=== PATIENT | female | born 1960 | race Caucasian/White ===

== ENCOUNTER 2017-04-30 04:51 | Emergency (ER) | payer BC ==
[2017-04-30 05:13] LABS: BASOPHILS 0.1 % (0-2); EOSINOPHILS 2.5 % (0-7); HEMATOCRIT 40.9 % (36.0-48.0); HEMOGLOBIN 13.9 g/dL (12-16); IMMATURE GRANULOCYTES 0.2 % (0-5); LYMPHOCYTES 8.9 % (15-50); MCH 30.8 pg (26.0-34.0); MCV 90.7 fL (80.0-100.0); MEAN PLATELET VOLUME 10.5 fL (7.4-10.4); MONOCYTES 6.9 % (2-11); NEUTROPHILS 81.4 % (40-80); PLATELET COUNT 166 10x3/uL (130-400); RBC 4.51 10x6/uL (4.00-5.40); RDW 12.4 % (11.5-14.5); WBC 9.3 10x3/uL (4.8-10.8)
[2017-04-30 05:27] LABS: ALBUMIN 3.9 g/dL (3.4-5.0); ALKALINE PHOSPHATASE 94 U/L (46-116); ALT (SGPT) 33 U/L (10-68); BILIRUBIN - TOTAL 0.45 mg/dL (0.2-1.3); CALC OSMOLALITY 278 mosm/kg (275-300); CALCIUM 9.5 mg/dL (8.5-10.1); CHLORIDE - SERUM 105 mmol/L (98-107); CREATININE - SERUM 0.7 mg/dL (0.6-1.3); GLUCOSE 133 mg/dL (74-106); POTASSIUM - SERUM 3.6 mmol/L (3.5-5.1); PROTEIN - SERUM 7.4 g/dL (6.4-8.2); SODIUM 140 mmol/L (136-145); UREA NITROGEN 8 mg/dL (7-18); eGFR NON AFRICAN AMERICAN > 90 mL/min (90-120)
[2017-04-30 05:30] LABS: APPEARANCE CLEAR (CLEAR); BACTERIA FEW /hpf (NONE SEEN); BILIRUBIN NEGATIVE (NEGATIVE); COLOR YELLOW (YELLOW); EPITHELIAL CELLS 0-5 /hpf (0-5); GLUCOSE NEGATIVE (NEGATIVE); KETONE MODERATE mg/dL (NEGATIVE); NITRITE NEGATIVE (NEGATIVE); PROTEIN TRACE mg/dL (NEGATIVE); RED CELLS - URINE 0-5 /hpf (0-5); SPECIFIC GRAVITY 1.015 (1.005-1.020); UROBILINOGEN NORMAL (NORMAL); WHITE CELLS - URINE 25-50 /hpf (0-5)
[2017-04-30 05:36] LABS: PRO BNP 440 pg/mL (0-125); TROPONIN-I 0.028 ng/mL (0.000-0.060)
== END 2017-04-30 06:45 | disposition home or self-care (01) ==
LOC: D.ER 04:51
PROVIDERS: Family Medicine
DX: N39.0 Urinary tract infection, site not specified (principal); J06.9 Acute upper respiratory infection, unspecified; R55 Syncope and collapse; I10 Essential (primary) hypertension

== ENCOUNTER → 2018-05-16 11:14 | Outpatient (CLI) | payer MEDICAID | END | disposition home or self-care (01) | LOC: D.LABREF 11:14 | DX: M16.12 Unilateral primary osteoarthritis, left hip (principal); Z11.8 Encounter for screening for other infectious and parasitic diseases ==

== ENCOUNTER 2018-06-27 10:00 | Inpatient (IN) | payer MEDICAID ==
[~2018-06-27] VITALS: Ht 149.9 cm; Wt 49.4 kg
[~2018-06-27 10:00] MED LIST: LISINOPRIL/HCTZ; METOPROLOL TART50 MG PO; VENTOLIN HFA18 GM INH
[2018-06-27 11:27] LABS: ANION GAP 13.1 mmol/L (8-16); CALCIUM 9.5 mg/dL (8.5-10.1); CARBON DIOXIDE 28.5 mmol/L (21.0-32.0); POTASSIUM - SERUM 3.6 mmol/L (3.5-5.1)
[2018-06-27 11:31] LABS: APTT 29.5 SECONDS (22.8-39.4); INR 0.97 (0.85-1.17); PROTIME 12.4 SECONDS (11.6-15.0)
[2018-06-27 11:52] LABS: APPEARANCE CLEAR (CLEAR); BILIRUBIN NEGATIVE (NEGATIVE); COLOR YELLOW (YELLOW); GLUCOSE NEGATIVE (NEGATIVE); KETONE NEGATIVE (NEGATIVE); NITRITE NEGATIVE (NEGATIVE); PROTEIN NEGATIVE (NEGATIVE); UROBILINOGEN NORMAL (NORMAL)
[2018-06-27 12:28] LABS: BASOPHILS 0.3 % (0-2); EOSINOPHILS 4.6 % (0-7); HEMATOCRIT 40.9 % (36.0-48.0); HEMOGLOBIN 14.1 g/dL (12-16); IMMATURE GRANULOCYTES 0.2 % (0-5); LYMPHOCYTES 28.6 % (15-50); MCHC 34.5 g/dL (31.0-37.0); MCV 89.9 fL (80.0-100.0); MEAN PLATELET VOLUME 10.2 fL (7.4-10.4); MONOCYTES 6.8 % (2-11); NEUTROPHILS 59.5 % (40-80); PLATELET COUNT 223 10x3/uL (130-400); RBC 4.55 10x6/uL (4.00-5.40); RDW 12.8 % (11.5-14.5); WBC 5.9 10x3/uL (4.8-10.8)
[2018-07-03] MEDS ORDERED: HCTZ25 MG PO (08:43)
[2018-07-03] MEDS ORDERED: NAPROSYN500 MG PO (08:45)
[2018-07-03 08:55] VITALS: BP 126/64; BMI 38.4
--- NOTE | 2018-07-03 14:14 | NUR ---
CONTACTED ANESTHESIA REGARDING BORDERLINE HEART RATE AND BLOOD PRESSURE FOR DISCHARGE. ORDERS RECEIVED FOR EPHEDRINE. SEE MAR. WILL CONTINUE TO MONITOR.
[2018-07-03 14:38] VITALS: BP 110/53
--- NOTE | 2018-07-03 16:14 | OP ---
PATIENT NAME: TITO CLARK MEDICAL RECORD: [id number] :58 LOCATION:D.MS [id number] ADMISSION DATE:07/03/18 SURGEON: JOAO CLEARY DO DATE OF OPERATION: 07/03/2018 PROCEDURE PERFORMED: Left total hip arthroplasty. PREOPERATIVE DIAGNOSIS: Severe left hip osteoarthritis. POSTOPERATIVE DIAGNOSIS: Severe left hip osteoarthritis. INDICATIONS: Ms. Clark is a 57-year-old female who has had left hip pain and problems for quite some time. She has tried all manner of nonoperative treatment to no avail. On x-ray, she did have her femoral head protruding into past the teardrop, appeared to be protruding into the pelvis, but was not on AP and she had very little to no motion. As she had been dealing it for quite a while, it started affecting her activities of daily living and requests a total hip be done. I informed her of the risks and benefits of the procedure including infection, bleeding, damage to nerve and vessels, damage to the lateral femoral cutaneous nerve, the femoral nerve and due to her size, infection and need for further surgery. She is okay with those risks as well as the risk of blood clot and even and she signed the consent. SURGEON: Joao Cleary DO DESCRIPTION OF PROCEDURE: The patient was given a block by anesthesia preoperatively, taken to the operative suite, laid in supine position. She was intubated and then placed over onto the [place] table. She was given 80 mg of gentamicin and a gram of vancomycin preoperatively. The left hip was prepped and draped in sterile fashion. The timeout was performed. Everyone was in agreement with the correct side, site, patient and procedure. Once that was done, the incision began over the tensor fascia haris. Careful dissection was made down to the fascia and any bleeding was coagulated with Aquamantys at the time. The fascia was opened. The fascia was taken anterior to the muscle belly posteriorly. The interval then between the rectus was opened and the rectus was taken medially and the tensor fascia haris laterally. The ascending branch of the lateral femoral circumflex was then tied off and coagulated with the Aquamantys and then cut. Any bleeders were coagulated at that time. Capsule was then exposed and the femoral neck was exposed. The neck was cut. Then, the head was removed with somewhat difficulty due to the small size and being so deep into the acetabulum. Once it was removed, the labrum was removed and reaming began up to a 46, a 46 G7 cup was put in and impacted into place. This fit very well, was solidly fixed. The liner was then put in and then the femur was exposed with somewhat difficulty, but got it exposed. A canal finder and cookie cutter were used and then the broaching began at 4, 4 trial was put in and seemed to be a little varus, it was taken out and then lateralized more with a cookie cutter and went to a 6, the 6 fit very well. Once the 6 fit, it was reduced with a -6 neck and seemed to have good equal lengths to the right side. Once that was completed, the hip was reduced with a 32 ceramic head and -6 neck was placed in a high offset micro stem, Taperloc stem was used. This was reduced and the x-rays were taken and seemed to fit very well and be good lengths compared to the other side. The wound was then thoroughly irrigated. Fifi, vancomycin and tobramycin powder were placed deep into the wound and the tensor fascia haris fascia was closed with #1 Vicryl, first a mavqgp-na-gqurw and then a running-locking stitch. Then the skin was closed, the adipose tissue was OPERATIVE REPORT [id number] TITO CLARK approximated with #1 Vicryl with simple sutures and then the skin was closed with 2-0 Vicryl in an inverted interrupted fashion, 4-0 Monocryl ran on the skin. Then, a Prevena incisional VAC was placed on the incision. The patient was awakened and taken to recovery in stable condition. Blood loss was 200 mL proximally. COMPLICATIONS: None. TRANSINT:[id number] Voice Confirmation ID: [id number] DOCUMENT ID: [id number] JOAO CLEARY DO at 1614 CC: [id number] DICTATION DATE: 07/03/18 1314 ASSEMBLY LINE MACHINE OPERATOR: 07/03/18 1531 ADM IN [facility] [address] [place] [address]
[2018-07-03 18:12] VITALS: BP 132/58
[2018-07-03 20:00] VITALS: BP 94/41
--- NOTE | 2018-07-04 04:09 | NUR ---
EYES CLOSED RESPIRATIONS WITH EASE AND UNLABORED. SR UP X2 CALL LIGHT WITHIN REACH.
[2018-07-04 05:04] LABS: HEMATOCRIT 30.2 % (36.0-48.0); HEMOGLOBIN 10.1 g/dL (12-16); MCH 30.4 pg (26.0-34.0); MCHC 33.4 g/dL (31.0-37.0); MEAN PLATELET VOLUME 9.8 fL (7.4-10.4); RBC 3.32 10x6/uL (4.00-5.40); RDW 13.1 % (11.5-14.5); WBC 6.9 10x3/uL (4.8-10.8)
[2018-07-04 05:18] LABS: ANION GAP 15.3 mmol/L (8-16); CALCIUM 7.5 mg/dL (8.5-10.1); CARBON DIOXIDE 23.7 mmol/L (21.0-32.0); CREATININE - SERUM 1.5 mg/dL (0.6-1.3)
[2018-07-04 05:21] VITALS: BP 98/29
[2018-07-04 08:47] VITALS: BP 89/52
[2018-07-04 12:19] VITALS: BP 119/58
[2018-07-04 12:22] VITALS: Ht 149.9 cm; Wt 49.4 kg
--- NOTE | 2018-07-04 16:03 | NUR ---
PT RESTING IN BED NO SIGNS OF DISTRESS. IV TO RIGHT HAND PATENT NO REDNESS OR TENDERNESS. HAS INCISION TO LEFT HIP. DRESSING INTACT. HAS WOUND VAC PRESENT. COMPLAINS OF PAIN AND NAUSEA. MEDS GIVEN. DENIES ANY NEED AT THIS TIME. CALL LIGHT IN REACH. BED LOW POSITION. FAMILY AT BEDSIDE.
[2018-07-04 16:59] VITALS: BP 97/28
[2018-07-04 20:08] VITALS: BP 102/7
--- NOTE | 2018-07-04 20:20 | NUR ---
PT RESTING IN BED. ALERT AND ORIENTED. NO SIGNS OF DISTRESS. BREATHING EVEN AND UNLABORED. PT STATES NO PROBLEMS AT THIS TIME. IV SITE RT HAND DRESSING CLEAN DRY AND INTACT. NO SIGNS OF INFECTION. SKIN CLEAN DRY AND INTACT. BOWEL SOUNDS ACTIVE. LT HIP DRESSING CLEAN DRY AND INTACT. WOUND VAC PRESENT WITH NO DRAINAGE. PLEXI BOOTS ON. WILL CONTINUE PLAN OF CARE. CALL LIGHT IN REACH.
[2018-07-05 00:31] VITALS: BP 97/40
[2018-07-05 04:34] VITALS: BP 96/34
[2018-07-05 06:09] LABS: HEMOGLOBIN 8.9 g/dL (12-16); MCH 30.7 pg (26.0-34.0); MCHC 34.2 g/dL (31.0-37.0); MCV 89.7 fL (80.0-100.0); RBC 2.9 10x6/uL (4.00-5.40); RDW 12.9 % (11.5-14.5); WBC 6.7 10x3/uL (4.8-10.8)
[2018-07-05 06:12] LABS: ANION GAP 12.8 mmol/L (8-16); CALCIUM 7.8 mg/dL (8.5-10.1); CARBON DIOXIDE 23.7 mmol/L (21.0-32.0); CREATININE - SERUM 1.7 mg/dL (0.6-1.3); POTASSIUM - SERUM 3.5 mmol/L (3.5-5.1)
--- NOTE | 2018-07-05 09:57 | NUR ---
MACHINIST INSTRUCTOR COMPLETE. PT LYING IN BED. NO SIGNS OF DISTRESS NOTED. CL IN REACH.
[2018-07-05 10:55] VITALS: BP 108/40
[2018-07-05 12:09] VITALS: BP 110/52
--- NOTE | 2018-07-05 14:00 | MORECARE ---
CASE MANAGEMENT DISCHARGE SUMMARY PATIENT: TITO MYLES SHARP UNIT: [id number] ADM DATE: 07/03/18 AGE: 57 : 58 SEX: F ROOM/BED: D.2216 AUTHOR: FLORENCE GAINES PHYSICIAN: REFERRING PHYSICIAN: WILBER CLEARY DO DATE OF SERVICE: 07/05/18 Discharge Plan Patient Name: TITO MYLES Facility: [facility]:[place] : 1960 Planned Disposition: Home or Self Care Anticipated Discharge Date: Discharge Date: Expected LOS: Initial Reviewer: [email or web address] Initial Review Date: 07/03/2018 Generated: 07/05/18 3:00 pm DCPIA - Discharge Planning Initial Assessment Updated by [email or web address]: Marietta Mckeon on 07/05/18 1:58 pm * Is the patient Alert and Oriented? Yes * How many steps to enter\exit or inside your home? * PCP ZAINAB * Pharmacy [facility] * Preadmission Environment Home with Family * ADLs Independent * Equipment Bedside Commode Rolling Walker * List name and contact numbers for known caregivers / representatives who currently or will assist patient after discharge: VANDANA SUAREZ [phone] * Verbal permission to speak to the caregivers and representatives has been obtained from the patient. N/A * Community resources currently utilized None * Additional services required to return to the preadmission environment? Yes * Can the patient safely return to the preadmission environment? Yes * Has this patient been hospitalized within the prior 30 days at any hospital? No Patient Name: TITO MYLES Page 53637 at 1400 All edits/amendments must be made on the electronic document DICTATION DATE: 07/05/18 1359 UNDERGROUND CONDUIT INSTALLER: MICHELLE 07/05/18 1359 RPT#: [id number] DC DATE: STATUS: ADM IN [facility] [address] [place] [address] END OF REPORT
--- NOTE | 2018-07-05 14:10 | MORECARE ---
CASE MANAGEMENT DISCHARGE SUMMARY PATIENT: TITO MYLES SHARP UNIT: [id number] ADM DATE: 07/03/18 AGE: 57 : 58 SEX: F ROOM/BED: D.2216 AUTHOR: EDER,FLORENCE PHYSICIAN: REFERRING PHYSICIAN: WILBER CLEARY DO DATE OF SERVICE: 07/05/18 Discharge Plan Patient Name: TITO MYLES Facility: [facility]:[place] : 1960 Planned Disposition: Home or Self Care Anticipated Discharge Date: Discharge Date: Expected LOS: Initial Reviewer: [email or web address] Initial Review Date: 07/03/2018 Generated: 07/05/18 3:09 pm Comments DCP- Discharge Planning Updated by [email or web address]: Marietta Mckeon on 07/05/18 1:[address] Patient Name: TITO MYLES Admission Status: Elective Accout number: [id number] Admission Date: 07-03-2018 : 1960 Admission Diagnosis: Attending: WILBER CLEARY Current LOS: 2 Anticipated DC Date: Planned Disposition: Home or Self Care Primary Insurance: MEDICAID [place] Discharge Planning Comments: CM met with patient to assess discharge planning needs. Patient stated that she is independent with her care at home. Her boyfriend will be the one to drive her home and will be the one to help her at home. She has 4 steps to enter in her home. She would like to go to OP PT in [place]. [facility] in [place] for July 09 at 3:30 pm. Patient has a rollator walker and bsc that was delivered to the hospital. Lenin with PT stated that he felt she was safe with the rollator at home. She feels safe to go home. CM will continue to follow and assist with DC planning Marine Biologist: Marietta Mckeon DCPIA - Discharge Planning Initial Assessment Updated by [email or web address]: Marietta Mckeon on 07/05/18 1:58 pm * Is the patient Alert and Oriented? Yes * How many steps to enter\exit or inside your home? * PCP ZAINAB * Pharmacy [facility] * Preadmission Environment Home with Family * ADLs Independent * Equipment Bedside Commode Rolling Walker * List name and contact numbers for known caregivers / representatives who currently or will assist patient after discharge: VANDANA STEWARTTZ [phone] * Verbal permission to speak to the caregivers and representatives has been obtained from the patient. N/A * Community resources currently utilized None * Additional services required to return to the preadmission environment? Yes * Can the patient safely return to the preadmission environment? Yes * Has this patient been hospitalized within the prior 30 days at any hospital? No Last DP export: 07/05/18 1:00 p Patient Name: TITO MYLES Page 97888 at 1410 All edits/amendments must be made on the electronic document DICTATION DATE: 07/05/181408 NIB INSPECTOR: MICHELLE 07/05/181408 RPT#: [id number] DC DATE: STATUS: ADM IN [facility] [address] [place] [address] END OF REPORT
--- NOTE | 2018-07-05 14:54 | MORECARE ---
CASE MANAGEMENT DISCHARGE SUMMARY PATIENT: TITO MYLES SHARP UNIT: [id number] ADM DATE: 07/03/18 AGE: 57 : 58 SEX: F ROOM/BED: D.2216 AUTHOR: EDER,FLORENCE PHYSICIAN: REFERRING PHYSICIAN: WILBER CLEARY DO DATE OF SERVICE: 07/05/18 Discharge Plan Patient Name: TITO MYLES Facility: [facility]:[place] : 1960 Planned Disposition: Home or Self Care Anticipated Discharge Date: Discharge Date: Expected LOS: Initial Reviewer: [email or web address] Initial Review Date: 07/03/2018 Generated: 07/05/18 3:54 pm Comments DCP- Discharge Planning Updated by [email or web address]: Marietta Mckeon on 07/05/18 1:[address] Patient Name: TITO MYLES Admission Status: Elective Accout number: [id number] Admission Date: 07-03-2018 : 1960 Admission Diagnosis: Attending: WILBER CLEARY Current LOS: 2 Anticipated DC Date: Planned Disposition: Home or Self Care Primary Insurance: MEDICAID [place] Discharge Planning Comments: CM met with patient to assess discharge planning needs. Patient stated that she is independent with her care at home. Her boyfriend will be the one to drive her home and will be the one to help her at home. She has 4 steps to enter in her home. She would like to go to OP PT in [place]. [facility] in [place] for July 09 at 3:30 pm. Patient has a rollator walker and bsc that was delivered to the hospital. Lenin with PT stated that he felt she was safe with the rollator at home. She feels safe to go home. CM will continue to follow and assist with DC planning Director Of Teenage Activities: Marietta Mckeon DCPIA - Discharge Planning Initial Assessment Updated by [email or web address]: Marietta Mckeon on 07/05/18 1:58 pm * Is the patient Alert and Oriented? Yes * How many steps to enter\exit or inside your home? * PCP ZAINAB * Pharmacy [facility] * Preadmission Environment Home with Family * ADLs Independent * Equipment Bedside Commode Rolling Walker * List name and contact numbers for known caregivers / representatives who currently or will assist patient after discharge: VANDANA SUAREZ [phone] * Verbal permission to speak to the caregivers and representatives has been obtained from the patient. N/A * Community resources currently utilized None * Additional services required to return to the preadmission environment? Yes * Can the patient safely return to the preadmission environment? Yes * Has this patient been hospitalized within the prior 30 days at any hospital? No Last DP export: 07/05/18 1:09 p Patient Name: TITO MYLES Page 46761 at 1454 All edits/amendments must be made on the electronic document DICTATION DATE: 07/05/181453 OPTOMETRY ASSISTANT: MICHELLE 07/05/181453 RPT#: [id number] DC DATE: STATUS: ADM IN [facility] [address] [place] [address] END OF REPORT
--- NOTE | 2018-07-05 15:03 | MORECARE ---
CASE MANAGEMENT DISCHARGE SUMMARY PATIENT: TITO MYLES SHARP UNIT: [id number] ADM DATE: 07/03/18 AGE: 57 : 58 SEX: F ROOM/BED: D.2216 AUTHOR: EDER,DOC PHYSICIAN: REFERRING PHYSICIAN: WILBER CLEARY DO DATE OF SERVICE: 07/05/18 Discharge Plan Patient Name: TITO MYLES Facility: [facility]:[place] : 1960 Planned Disposition: Home or Self Care Anticipated Discharge Date: Discharge Date: Expected LOS: Initial Reviewer: [email or web address] Initial Review Date: 07/03/2018 Generated: 07/05/18 4:03 pm Comments DCP- Discharge Planning Updated by [email or web address]: Marietta Mckeon on 07/05/18 1:[address] [facility] in [place] called back and stated that they do not take her insurance. Patient would like to use home health [facility] with [facility] (1st choice and [facility] 2nd choice) I called [facility] spoke with Ivana. Clinicals will be faxed and they will accept DCP- Discharge Planning Updated by [id number]: Marietta Mckeon on 07/05/18 1:[address] Patient Name: TITO MYLES Admission Status: Elective Accout number: [id number] Admission Date: 07-03-2018 : 1960 Admission Diagnosis: Attending: WILBER CLEARY Current LOS: 2 Anticipated DC Date: Planned Disposition: Home or Self Care Primary Insurance: MEDICAID [place] Discharge Planning Comments: CM met with patient to assess discharge planning needs. Patient stated that she is independent with her care at home. Her boyfriend will be the one to drive her home and will be the one to help her at home. She has 4 steps to enter in her home. She would like to go to OP PT in [place]. [facility] in [place] for July 09 at 3:30 pm. Patient has a rollator walker and bsc that was delivered to the hospital. Lenin with PT stated that he felt she was safe with the rollator at home. She feels safe to go home. CM will continue to follow and assist with DC planning Supply Clerk: Marietta Mckeon DCPIA - Discharge Planning Initial Assessment Updated by [email or web address]: Marietta Mckeon on 07/05/18 1:58 pm * Is the patient Alert and Oriented? Yes * How many steps to enter\exit or inside your home? * PCP ZAINAB * [facility]acy [facility] * Preadmission Environment Home with Family * ADLs Independent * Equipment Bedside Commode Rolling Walker * List name and contact numbers for known caregivers / representatives who currently or will assist patient after discharge: VANDANA SUAREZ [phone] * Verbal permission to speak to the caregivers and representatives has been obtained from the patient. N/A * Community resources currently utilized None * Additional services required to return to the preadmission environment? Yes * Can the patient safely return to the preadmission environment? Yes * Has this patient been hospitalized within the prior 30 days at any hospital? No External Providers External Provider: [facility] Next Contact Date: Service Request Date: Service Type: Resolution: Reviewer: Comments: Last DP export: 07/05/18 1:54 p Patient Name: TITO MYLES Page 19415 at 1503 All edits/amendments must be made on the electronic document DICTATION DATE: 07/05/181502 DONOR SERVICES TECHNICIAN: MICHELLE 07/05/18 150 RPT#: [id number] DC DATE: STATUS: ADM IN [facility] [address] [place] [address] END OF REPORT
[2018-07-05 18:44] LABS: APPEARANCE CLEAR (CLEAR); BILIRUBIN NEGATIVE (NEGATIVE); COLOR YELLOW (YELLOW); EPITHELIAL CELLS 0-5 /hpf (0-5); GLUCOSE NEGATIVE (NEGATIVE); KETONE NEGATIVE (NEGATIVE); NITRITE NEGATIVE (NEGATIVE); PROTEIN NEGATIVE (NEGATIVE); RED CELLS - URINE 0-5 /hpf (0-5); UROBILINOGEN NORMAL (NORMAL); WHITE CELLS - URINE NSEEN /hpf (0-5)
--- NOTE | 2018-07-05 19:00 | NUR ---
REPORT RECEIVED AND CARE OF PT ASSUMED. PT LYING IN SEMI KO'S POSITION WATCHING TV. NO IV AT THIS TIME. PROVENA WOUND VAC IN PLACE ON LEFT HIP INCISION. WILL MONITOR FOR NEEDS.
--- NOTE | 2018-07-05 19:50 | NUR ---
PT LYING IN BED. NO SIGNS OF DISTRESS NOTED. CL IN REQACH.
[2018-07-05 20:20] VITALS: BP 118/37
--- NOTE | 2018-07-05 20:55 | NUR ---
HS MEDICATIONS GIVEN. WILL CONTINUE TO MONITOR FOR NEEDS. ASSISTED PT UP TO USE RESTROOM...AMBULATES WELL WITH WALKER.
[2018-07-05 23:37] VITALS: BP 117/50
--- NOTE | 2018-07-05 23:43 | NUR ---
GAVE ULTRAM 50 MG AND VISTARIL PO PER PRN ORDERS FOR C/O PAIN IN KNEE. WILL MONITOR FOR EFFECTIVENESS. CALL LIGHT WITHIN REACH.
[2018-07-06 04:07] LABS: BASOPHILS 0 % (0-2); EOSINOPHILS 2.5 % (0-7); HEMATOCRIT 26.1 % (36.0-48.0); IMMATURE GRANULOCYTES 0.2 % (0-5); LYMPHOCYTES 13.7 % (15-50); MCH 30.7 pg (26.0-34.0); MCHC 34.5 g/dL (31.0-37.0); MCV 89.1 fL (80.0-100.0); MEAN PLATELET VOLUME 10.1 fL (7.4-10.4); MONOCYTES 7.8 % (2-11); NEUTROPHILS 75.8 % (40-80); RBC 2.93 10x6/uL (4.00-5.40); RDW 12.8 % (11.5-14.5); WBC 6.4 10x3/uL (4.8-10.8)
[2018-07-06 04:13] LABS: PLATELET COUNT 165 10x3/uL (130-400)
[2018-07-06 04:35] LABS: ALBUMIN 2.5 g/dL (3.4-5.0); ANION GAP 14.1 mmol/L (8-16); BILIRUBIN - TOTAL 0.46 mg/dL (0.2-1.3); CALCIUM 8.3 mg/dL (8.5-10.1); CARBON DIOXIDE 22.9 mmol/L (21.0-32.0); CREATININE - SERUM 1.7 mg/dL (0.6-1.3); PROTEIN - SERUM 6.1 g/dL (6.4-8.2)
[2018-07-06 05:53] VITALS: BP 131/56
[2018-07-06 07:26] VITALS: BP 118/49
--- NOTE | 2018-07-06 08:00 | NUR ---
ASSESSMENT PER FLOW SHEET. PT IS WITHOUT DISTRESS.CALL LIGHT IN REACH. MONITOR FOR NEEDS.
--- NOTE | 2018-07-06 09:08 | NUR ---
AMBULATING IN HALLS WITH PT.TOLERATING WELL
[2018-07-06 12:03] VITALS: BP 104/45
--- NOTE | 2018-07-06 17:58 | NUR ---
HAS REMAINED WITHOUT DISTRESS.REMAINS WITHOUT CHANGE FROM INTITIAL SHIFT ASSESSMENT.CONT PLAN OF CARE
--- NOTE | 2018-07-06 19:00 | NUR ---
REPORT RECEIVED AND CARE OF PT ASSUMED. PT LYING IN SUPINE POSITION WITH EYES CLOSED. NO IV SITED. PROVENA WOUND VAC IN PLACE ON LEFT HIP. WILL MONITOR FOR NEEDS.
[2018-07-06 20:00] VITALS: BP 83/47
--- NOTE | 2018-07-06 20:40 | NUR ---
PT ASSISTED WITH TAKING SHOWER. ALL LINENS AND BED CHANGED.
--- NOTE | 2018-07-06 20:45 | NUR ---
HS MEDICATIONS GIVEN TO INCLUDE ZOFRAN, ULTRAM, AND VISTARIL FOR NAUSEA AND PAIN. WILL CONTINUE TO MONITOR FOR NEEDS. CALL LIGHT WITHIN REACH.
[2018-07-07 00:26] VITALS: BP 101/43
[2018-07-07 00:41] VITALS: BP 101/43
[2018-07-07 05:25] VITALS: BP 110/40
[2018-07-07 06:37] LABS: ANION GAP 13.9 mmol/L (8-16); CALCIUM 8.7 mg/dL (8.5-10.1); CARBON DIOXIDE 24.1 mmol/L (21.0-32.0); CREATININE - SERUM 1.6 mg/dL (0.6-1.3)
[2018-07-07 08:30] VITALS: BP 119/40
[2018-07-07] MEDS ORDERED: VISTARIL50 MG PO (09:47)
[2018-07-07] MEDS ORDERED: ASPIRIN81 MG PO (09:47)
[2018-07-07] MEDS ORDERED: ULTRAM50 MG PO (09:47)
[2018-07-07] MEDS ORDERED: DOXYCYCLINE HY100 M2 PO (09:50)
--- NOTE | 2018-07-07 13:05 | NUR ---
DISCHARGE INSTRUCTIONS BY SHANNON. PT STATES UNDERSTANDING. MARGO LIEBERMAN FOR DC HOME
--- NOTE | 2018-07-08 13:32 | MORECARE ---
CASE MANAGEMENT DISCHARGE SUMMARY PATIENT: TITO MYLES SHARP UNIT: [id number] ADM DATE: 07/03/18 AGE: 57 : 58 SEX: F ROOM/BED: D.1596 AUTHOR: EDER,DOC PHYSICIAN: REFERRING PHYSICIAN: WILBER CLEARY DO DATE OF SERVICE: 07/08/18 Discharge Plan Patient Name: TITO MYLES Facility: [facility]:[place] : 1960 Planned Disposition: Home or Self Care Anticipated Discharge Date: Discharge Date: 07/07/2018 Expected LOS: Initial Reviewer: [id number] Initial Review Date: 07/03/2018 Generated: 07/08/18 2:32 pm Comments DCP- Discharge Planning Updated by [email or web address]: Dai Buchanan on 07/08/18 12:[address] CONTACT INFORMATION [phone] DCP- Discharge Planning Updated by [email or web address]: Dai Buchanan on 07/08/18 12:[address] LATE ENTRY 07/07/18 PATIENT FOR DISCHARGE TO HOME WITH [facility]. CM VISITED AT THE BEDSIDE.PATIENT HAD COMMODE AT THE BEDSIDE. STATED SHE THOUGHT THEY WERE TO DELIVER THE COMMODE TO HER HOME. SHE DID NOT FEEL THE COMMODE WOULD WORK. DESCRIBED A RAISED TOILET SEAT WITH HAND RAILS. SHE DID NOT KNOW THE PROVIDERS NAME. CM CHECKED THE LABEL. TELEPHONED [facility]. EXPLAINED PATIENT'S CONCERN. HAD THE INFRASTRUCTURE ARCHITECT TO SPEAK DIRECTLY TO THE PATIENT TO ANSWER QUESTIONS AND RESOLVE ISSUE REGARDING DME. 1452 TC TO [facility] TO ADVISE OF PLANNED DISCHARGE. SPOKE WITH [facility] THEN THE INFRASTRUCTURE ARCHITECT. FAXED DISCHARGE INSTRUCTIONS AND MED SHEET . DCP- Discharge Planning Updated by [email or web address]: Marietta Mckeon on 07/05/18 1:[address] [facility] in [place] called back and stated that they do not take her insurance. Patient would like to use home health [facility] with [facility] (1st choice and [facility] 2nd choice) I called [facility] spoke with Ivana. Clinicals will be faxed and they will accept DCP- Discharge Planning Updated by [email or web address]: Marietta Mckeon on 07/05/18 1:[address] Patient Name: TITO MYLES Admission Status: Elective Accout number: [id number] Admission Date: 07-03-2018 : 1960 Admission Diagnosis: Attending: WILBER CLEARY Current LOS: 2 Anticipated DC Date: Planned Disposition: Home or Self Care Primary Insurance: MEDICAID [place] Discharge Planning Comments: CM met with patient to assess discharge planning needs. Patient stated that she is independent with her care at home. Her boyfriend will be the one to drive her home and will be the one to help her at home. She has 4 steps to enter in her home. She would like to go to OP PT in [place]. [facility] in [place] for July 09 at 3:30 pm. Patient has a rollator walker and bsc that was delivered to the hospital. Lenin with PT stated that he felt she was safe with the rollator at home. She feels safe to go home. CM will continue to follow and assist with DC planning Cannoneer: Marietta Mckeon DCPIA - Discharge Planning Initial Assessment Updated by [email or web address]: Marietta Mckeon on 07/05/18 1:58 pm * Is the patient Alert and Oriented? Yes * How many steps to enter\exit or inside your home? * PCP ZAINAB * Pharmacy [facility] * Preadmission Environment Home with Family * ADLs Independent * Equipment Bedside Commode Rolling Walker * List name and contact numbers for known caregivers / representatives who currently or will assist patient after discharge: VANDANA SUAREZ [phone] * Verbal permission to speak to the caregivers and representatives has been obtained from the patient. N/A * Community resources currently utilized None * Additional services required to return to the preadmission environment? Yes * Can the patient safely return to the preadmission environment? Yes * Has this patient been hospitalized within the prior 30 days at any hospital? No Last DP export: 07/05/18 2:03 p Patient Name: TITO MYLES Page 30628 at 1332 All edits/amendments must be made on the electronic document DICTATION DATE: 07/08/18 1331 BALANCE WHEEL HAND FILER: DM 07/08/18 1331 RPT#: [id number] DC DATE:07/07/18 STATUS: DIS IN [facility] [address] [place] [address] END OF REPORT
--- NOTE | 2018-07-13 11:46 | MORECARE ---
CASE MANAGEMENT DISCHARGE SUMMARY PATIENT: TITO MYLES SHARP UNIT: [id number] ADM DATE: 07/03/18 AGE: 58 : 58 SEX: F ROOM/BED: D.6386 AUTHOR: EDER,DOC PHYSICIAN: REFERRING PHYSICIAN: WILBER CLEARY DO DATE OF SERVICE: 07/13/18 Discharge Plan Patient Name: TITO MYLES Facility: [facility]:[place] : 1960 Planned Disposition: Home or Self Care Anticipated Discharge Date: Discharge Date: 07/07/2018 Expected LOS: 0 Initial Reviewer: [id number] Initial Review Date: 07/03/2018 Generated: 07/13/18 12:46 pm Comments DCP- Discharge Planning Updated by [email or web address]: Dai Buchanan on 07/08/18 12:[address] CONTACT INFORMATION [phone] DCP- Discharge Planning Updated by [id number]: Dai Buchanan on 07/08/18 12:[address] LATE ENTRY 07/07/18 PATIENT FOR DISCHARGE TO HOME WITH [facility]. CM VISITED AT THE BEDSIDE.PATIENT HAD COMMODE AT THE BEDSIDE. STATED SHE THOUGHT THEY WERE TO DELIVER THE COMMODE TO HER HOME. SHE DID NOT FEEL THE COMMODE WOULD WORK. DESCRIBED A RAISED TOILET SEAT WITH HAND RAILS. SHE DID NOT KNOW THE PROVIDERS NAME. CM CHECKED THE LABEL. TELEPHONED [facility]. EXPLAINED PATIENT'S CONCERN. HAD THE HORTICULTURE/FLORICULTURE TEACHER TO SPEAK DIRECTLY TO THE PATIENT TO ANSWER QUESTIONS AND RESOLVE ISSUE REGARDING DME. 1452 TC TO [facility] TO ADVISE OF PLANNED DISCHARGE. SPOKE WITH [facility] THEN THE HORTICULTURE/FLORICULTURE TEACHER. FAXED DISCHARGE INSTRUCTIONS AND MED SHEET . DCP- Discharge Planning Updated by [id number]: Marietta Mckeon on 07/05/18 1:[address] [facility] in [place] called back and stated that they do not take her insurance. Patient would like to use home health [facility] with [facility] (1st choice and [facility] 2nd choice) I called [employer] [facility] spoke with Ivana. Clinicals will be faxed and they will accept DCP- Discharge Planning Updated by [email or web address]: Marietta Mckeon on 07/05/18 1:[address] Patient Name: TITO MYLES Admission Status: Elective Accout number: [id number] Admission Date: 07-03-2018 : 1960 Admission Diagnosis: Attending: WILBER CLEARY Current LOS: 2 Anticipated DC Date: Planned Disposition: Home or Self Care Primary Insurance: MEDICAID [place] Discharge Planning Comments: CM met with patient to assess discharge planning needs. Patient stated that she is independent with her care at home. Her boyfriend will be the one to drive her home and will be the one to help her at home. She has 4 steps to enter in her home. She would like to go to OP PT in [place]. [facility] in [place] for July 09 at 3:30 pm. Patient has a rollator walker and bsc that was delivered to the hospital. Lenin with PT stated that he felt she was safe with the rollator at home. She feels safe to go home. CM will continue to follow and assist with DC planning Sql Database Programmer: Marietta Mckeon DCPIA - Discharge Planning Initial Assessment Updated by [email or web address]: Marietta Mckeon on 07/05/18 1:58 pm * Is the patient Alert and Oriented? Yes * How many steps to enter\exit or inside your home? * PCP ZAINAB * [facility] * Preadmission Environment Home with Family * ADLs Independent * Equipment Bedside Commode Rolling Walker * List name and contact numbers for known caregivers / representatives who currently or will assist patient after discharge: VANDANA SUAREZ [phone] * Verbal permission to speak to the caregivers and representatives has been obtained from the patient. N/A * Community resources currently utilized None * Additional services required to return to the preadmission environment? Yes * Can the patient safely return to the preadmission environment? Yes * Has this patient been hospitalized within the prior 30 days at any hospital? No Last DP export: 07/08/18 12:32 p Patient Name: TITO MYLES Page [id number] at 1146 All edits/amendments must be made on the electronic document DICTATION DATE: 07/13/18 3074 PHYSICAL EDUCATION TEACHER: MICHELLE 07/13/18 1145 RPT#: [id number] DC DATE:07/07/18 STATUS: DIS IN [facility] [address] [place] [address] END OF REPORT
== END 2018-07-07 13:06 | disposition home health service (06) | DRG 470 ==
LOC: D.SDCHOLD 07-03 07:30 → D.MS 07-03 07:30 → D.SDCHOLD 07-03 09:30 → D.MS 07-03 14:22
PROVIDERS: Internal Medicine Nephrology; ADMIT Orthopaedic Surgery
PROC: 0SRB03Z Replacement of Left Hip Joint with Ceramic Synthetic Substitute, Open Approach (ICD-10-PCS; principal; 2018-07-03 09:30)
DX: M16.12 Unilateral primary osteoarthritis, left hip (principal); D62 Acute posthemorrhagic anemia; N17.9 Acute kidney failure, unspecified; E66.9 Obesity, unspecified; Z68.38 Body mass index [BMI] 38.0-38.9, adult; I10 Essential (primary) hypertension; I25.10 Atherosclerotic heart disease of native coronary artery without angina pectoris; F41.9 Anxiety disorder, unspecified; K21.9 Gastro-esophageal reflux disease without esophagitis; K58.9 Irritable bowel syndrome, unspecified

== ENCOUNTER → 2018-07-12 17:01 | Outpatient (CLI) | payer MEDICAID ==
[2018-07-04 12:22] VITALS: BMI 22.0
[~2018-07-12 17:01] MED LIST changes: +ASPIRIN81 MG PO; +DOXYCYCLINE HY100 M2 PO; +HCTZ25 MG PO; +NAPROSYN500 MG PO; +ULTRAM50 MG PO; +VISTARIL50 MG PO
[2018-07-12 17:29] LABS: BASOPHILS 0.3 % (0-2); EOSINOPHILS 4.6 % (0-7); HEMOGLOBIN 8.6 g/dL (12-16); IMMATURE GRANULOCYTES 0.4 % (0-5); MCHC 31.9 g/dL (31.0-37.0); MCV 94.1 fL (80.0-100.0); MEAN PLATELET VOLUME 8.8 fL (7.4-10.4); MONOCYTES 7.4 % (2-11); NEUTROPHILS 69.3 % (40-80); RBC 2.87 10x6/uL (4.00-5.40); RDW 13.2 % (11.5-14.5); WBC 6.8 10x3/uL (4.8-10.8)
[2018-07-12 17:35] LABS: PLATELET COUNT 345 10x3/uL (130-400)
[2018-07-12 17:36] LABS: APPEARANCE CLEAR (CLEAR); COLOR YELLOW (YELLOW); SPECIFIC GRAVITY 1.005 (1.005-1.020)
[2018-07-12 17:37] LABS: BILIRUBIN NEGATIVE (NEGATIVE); GLUCOSE NEGATIVE (NEGATIVE); KETONE NEGATIVE (NEGATIVE); NITRITE NEGATIVE (NEGATIVE); PROTEIN NEGATIVE (NEGATIVE); UROBILINOGEN NORMAL (NORMAL)
[2018-07-12 17:44] LABS: ALBUMIN 2.8 g/dL (3.4-5.0); ANION GAP 14.5 mmol/L (8-16); BILIRUBIN - TOTAL 0.2 mg/dL (0.2-1.3); CALCIUM 8.5 mg/dL (8.5-10.1); CARBON DIOXIDE 29.5 mmol/L (21.0-32.0); CREATININE - SERUM 1.5 mg/dL (0.6-1.3); PROTEIN - SERUM 6.2 g/dL (6.4-8.2)
== END | disposition home or self-care (01) ==
LOC: D.LABREF 17:01
PROVIDERS: Family Medicine
DX: I10 Essential (primary) hypertension (principal); I25.10 Atherosclerotic heart disease of native coronary artery without angina pectoris

== ENCOUNTER → 2018-08-10 08:02 | Outpatient (CLI) | payer MEDICAID ==
[2018-07-04 12:22] VITALS: BMI 22.0
== END | disposition home or self-care (01) ==
LOC: D.MRI 08:02
DX: M25.562 Pain in left knee (principal)

== ENCOUNTER 2019-01-17 09:37 | Inpatient (IN) | payer MEDICAID ==
[~2019-01-17] VITALS: Ht 151.1 cm; Wt 90.7 kg
[2019-01-21] MEDS ORDERED: ASPIRIN EC81 M1 PO (09:44)
[2019-01-21] MEDS ORDERED: LISINOPRIL20 MG PO (09:45)
[2019-01-21] MEDS ORDERED: OXYBUTYNIN CHLOR5 M1 PO (09:48)
[2019-01-21 10:55] LABS: ANION GAP 11.5 mmol/L (8-16); CALCIUM 9.1 mg/dL (8.5-10.1); CARBON DIOXIDE 27.8 mmol/L (21.0-32.0); CREATININE - SERUM 0.9 mg/dL (0.6-1.3); POTASSIUM - SERUM 4.3 mmol/L (3.5-5.1)
[2019-01-21 10:56] LABS: BASOPHILS 0.2 % (0-2); EOSINOPHILS 5.6 % (0-7); HEMATOCRIT 36.7 % (36.0-48.0); HEMOGLOBIN 12.3 g/dL (12-16); IMMATURE GRANULOCYTES 0.2 % (0-5); LYMPHOCYTES 28.2 % (15-50); MCH 30.4 pg (26.0-34.0); MCHC 33.5 g/dL (31.0-37.0); MCV 90.8 fL (80.0-100.0); MEAN PLATELET VOLUME 9.9 fL (7.4-10.4); NEUTROPHILS 60.8 % (40-80); PLATELET COUNT 188 10x3/uL (130-400); RBC 4.04 10x6/uL (4.00-5.40)
[2019-01-21 10:58] LABS: INR 1.04 (0.85-1.17); PROTIME 13.1 SECONDS (11.6-15.0)
[2019-01-21 12:08] LABS: APPEARANCE CLEAR (CLEAR); BILIRUBIN NEGATIVE (NEGATIVE); COLOR YELLOW (YELLOW); GLUCOSE NEGATIVE (NEGATIVE); KETONE NEGATIVE (NEGATIVE); NITRITE NEGATIVE (NEGATIVE); PROTEIN NEGATIVE (NEGATIVE); SPECIFIC GRAVITY 1.005 (1.005-1.020); UROBILINOGEN NORMAL (NORMAL)
[2019-01-22] MEDS ORDERED: ZETIA10 MG PO (07:45)
[2019-01-22] MEDS ORDERED: NITROQUICK0.4 MG SL (07:48)
--- NOTE | 2019-01-22 07:50 | NUR ---
3456 PT REPORTS HAVING CHEST PAIN LAST EVENING AND TOOK ONE NTG SL WITHOUT RELIEF. SHE SAID AFTER SHE STARTED PASSING FLATUS, THE PAIN IN HER CHEST SUBSIDED. PT REPORTS SHE HAS HAD A CARDIAC WORKUP 4 YEARS AGO. NO STENTS,NO RI. HX OF PALPITATIONS. STATES SHE HAD SOME PALPITATIONS LAST NIGHT AND THAT WAS ANOTHER REASON FOR HER TO TAKE NTG. DENIES CP AT PRESENT. NO PALPITATIONS CURRENTLY.
--- NOTE | 2019-01-22 08:06 | NUR ---
0756 DR. MIKE NOTIFIED OF PT'S REPORTING OF RECENT CHEST PAIN AND PALPITATIONS. UPON FURTHER QUESTIONING, SHE REPORTS HAVING HEAVINESS IN CHEST ON EXERTION AND FATIGUE. DR MIKE STATES HE WILL COME SEE PT.
[2019-01-22 08:25] VITALS: BP 137/58; BMI 37.8
--- NOTE | 2019-01-22 08:34 | NUR ---
0812 DR. MIKE HERE TO EVALUATE PT 0817 DR. MIKE SAID TO PROCEED WITH GETTING PT READY FOR SURGERY.
--- NOTE | 2019-01-22 10:07 | NUR ---
PLASMA BLADE USED LOT# [id number] DATE: 07/12/20
[2019-01-22 12:55] VITALS: BP 137/61
--- NOTE | 2019-01-22 13:10 | NUR ---
JUST ARRIVED TO ROOM 2200. AWAKE AND ALERT EASILY TO AROUSED WHEN NAME IS CALLED. RESP EVEN AND UNLABORED WITH NO DISTRESS NOTED. CAN EXPRESS NEEDS AND WANTS. DRESSING CLEAN DRY AND INTACT TO RIGHT HIP WITH ICE PACK INTACT. AND C/L IN REACH AT BEDSIDE.
[2019-01-22 13:53] LABS: ANION GAP 14.7 mmol/L (8-16); CALCIUM 8.2 mg/dL (8.5-10.1); POTASSIUM - SERUM 4.4 mmol/L (3.5-5.1)
[2019-01-22 13:54] LABS: CARBON DIOXIDE 20.7 mmol/L (21.0-32.0)
[2019-01-22 13:56] LABS: APTT 28.5 SECONDS (22.8-39.4); INR 1.09 (0.85-1.17); PROTIME 13.6 SECONDS (11.6-15.0)
[2019-01-22 13:57] LABS: BASOPHILS 0.1 % (0-2); EOSINOPHILS 1.2 % (0-7); HEMATOCRIT 33.3 % (36.0-48.0); HEMOGLOBIN 11.1 g/dL (12-16); IMMATURE GRANULOCYTES 0.4 % (0-5); LYMPHOCYTES 9.6 % (15-50); MCH 30.6 pg (26.0-34.0); MCHC 33.3 g/dL (31.0-37.0); MCV 91.7 fL (80.0-100.0); MEAN PLATELET VOLUME 9.9 fL (7.4-10.4); MONOCYTES 1.6 % (2-11); NEUTROPHILS 87.1 % (40-80); PLATELET COUNT 183 10x3/uL (130-400); RBC 3.63 10x6/uL (4.00-5.40)
[2019-01-22 14:02] LABS: WBC 11.9 10x3/uL (4.8-10.8)
[2019-01-22 14:28] VITALS: BP 137/61; BMI 39.8
[2019-01-22 15:45] VITALS: BP 94/38
[2019-01-22 20:00] VITALS: BP 96/31
[2019-01-22 21:17] VITALS: BP 96/31
[2019-01-23] VITALS (7 sets, daily range): BP systolic 81–142; BP diastolic 30–87; Ht 151.1 cm; Wt 90.7 kg
--- NOTE | 2019-01-23 01:58 | NUR ---
PT RESTING IN BED WITH NO NEEDS AT THIS TIME IV IN PLACE AND PATEN TO LEFT HAND WITH 1/2 NS AT 50 PER ORDERS KNEE IMMOBLIZER IN PLACE. DRESSING TO RIGHT HIP IN PLACE CDI. LOPRESSER HELD THIS SHIFT FOR B/P OF . WATER IN REACH REMAINS ON BEDREST AT THIS TIME.
[2019-01-23 07:12] LABS: HEMATOCRIT 27.1 % (36.0-48.0); HEMOGLOBIN 9.1 g/dL (12-16); MCH 30.6 pg (26.0-34.0); MCHC 33.6 g/dL (31.0-37.0); MCV 91.2 fL (80.0-100.0); MEAN PLATELET VOLUME 10.1 fL (7.4-10.4); RBC 2.97 10x6/uL (4.00-5.40); RDW 13.1 % (11.5-14.5)
[2019-01-23 07:15] LABS: WBC 8.7 10x3/uL (4.8-10.8)
--- NOTE | 2019-01-23 07:30 | NUR ---
PT RESTING IN BED WATCHING TV. NO ACUTE DISTRESS NOTED AT THIS TIME. O2 @ 2L NC IN PLACE. REPORTS PAIN / AT THIS TIME. IV TO LEFT HAND WITH 1/2 NS @ 50ML/HR INFUSING VIA PUMP. SITE WITHOUT REDNESS OR EDEMA. DRESSING C/D/I TO RIGHT THIGH. LEG IMMOBILIZER IN PLACE. PULSE PALPABLE, EXTREMITY WARM TO TOUCH, ABLE TO MOVE TOES. PT DENIES FURTHER NEEDS AT THIS TIME. CL WITHIN REACH. ENCOURAGED TO CALL WITH NEEDS. CONTINUE POC
[2019-01-23 09:56] LABS: ALBUMIN 2.8 g/dL (3.4-5.0); BILIRUBIN - TOTAL 0.29 mg/dL (0.2-1.3); CALCIUM 7.7 mg/dL (8.5-10.1); CARBON DIOXIDE 21.5 mmol/L (21.0-32.0); CREATININE - SERUM 1.1 mg/dL (0.6-1.3); POTASSIUM - SERUM 4.5 mmol/L (3.5-5.1); PROTEIN - SERUM 5.3 g/dL (6.4-8.2)
--- NOTE | 2019-01-23 11:15 | NUR ---
BLADDER SCAN PERFORMED, 0ML URINE SCANNED AT THIS TIME. PT ASSISTED TO BEDSIDE COMMODE VOIDED 250ML YELLOW URINE. OBTAINED SPECIMEN PER ORDERS FOR UA
[2019-01-24 04:07] LABS: BASOPHILS 0.1 % (0-2); EOSINOPHILS 2.9 % (0-7); HEMATOCRIT 24.7 % (36.0-48.0); HEMOGLOBIN 8.3 g/dL (12-16); IMMATURE GRANULOCYTES 0.3 % (0-5); LYMPHOCYTES 16.2 % (15-50); MCH 30.5 pg (26.0-34.0); MCHC 33.6 g/dL (31.0-37.0); MCV 90.8 fL (80.0-100.0); MEAN PLATELET VOLUME 9.7 fL (7.4-10.4); MONOCYTES 6.9 % (2-11); NEUTROPHILS 73.6 % (40-80); PLATELET COUNT 160 10x3/uL (130-400); RBC 2.72 10x6/uL (4.00-5.40); RDW 13.2 % (11.5-14.5); WBC 7.3 10x3/uL (4.8-10.8)
[2019-01-24 04:16] LABS: ALBUMIN 2.7 g/dL (3.4-5.0); ANION GAP 12.3 mmol/L (8-16); BILIRUBIN - TOTAL 0.27 mg/dL (0.2-1.3); CALCIUM 7.8 mg/dL (8.5-10.1); CARBON DIOXIDE 24.7 mmol/L (21.0-32.0); CREATININE - SERUM 1.2 mg/dL (0.6-1.3); PROTEIN - SERUM 5.2 g/dL (6.4-8.2)
--- NOTE | 2019-01-24 04:50 | NUR ---
I have reviewed this patient and I concur with the Shift Assessment completed by the Licensed Practical Nurse today this shift.
[2019-01-24 09:37] VITALS: BP 136/38
[2019-01-24 13:07] VITALS: BP 139/50
[2019-01-24 18:14] VITALS: BP 137/50
--- NOTE | 2019-01-24 20:00 | NUR ---
ALERT SITTING UP IN BED, HAS BEEN UP AMBULATING IN HALLWAY, ABD TENDER WITH STERI STRIPS IN PLACE X 5 SITES, NO DRAINAGE NOTED, SEE SHIFT ASSESSMENT, CALL LIGHT IN REACH
--- NOTE | 2019-01-24 20:00 | NUR ---
ALERT RESTING IN BED, SWELLING AND BRUSING NOTED TO RIGHT HIP, DRESSING D/I, SEE SHIFT ASSESSMENT, CALL LIGHT IN REACH
[2019-01-24 20:43] VITALS: BP 141/56
[2019-01-25 00:47] VITALS: BP 128/41
[2019-01-25 05:35] VITALS: BP 136/49
[2019-01-25 06:45] LABS: BASOPHILS 0.2 % (0-2); EOSINOPHILS 5.6 % (0-7); HEMATOCRIT 25.1 % (36.0-48.0); HEMOGLOBIN 8.4 g/dL (12-16); IMMATURE GRANULOCYTES 0.3 % (0-5); LYMPHOCYTES 20.1 % (15-50); MCH 30.7 pg (26.0-34.0); MCHC 33.5 g/dL (31.0-37.0); MCV 91.6 fL (80.0-100.0); MONOCYTES 7.5 % (2-11); NEUTROPHILS 66.3 % (40-80); PLATELET COUNT 168 10x3/uL (130-400); RBC 2.74 10x6/uL (4.00-5.40); RDW 13.3 % (11.5-14.5); WBC 6.4 10x3/uL (4.8-10.8)
[2019-01-25 07:06] LABS: ALBUMIN 2.7 g/dL (3.4-5.0); ANION GAP 13.9 mmol/L (8-16); BILIRUBIN - TOTAL 0.58 mg/dL (0.2-1.3); CALCIUM 8.6 mg/dL (8.5-10.1); CARBON DIOXIDE 24.1 mmol/L (21.0-32.0); CREATININE - SERUM 1.1 mg/dL (0.6-1.3); PROTEIN - SERUM 5.7 g/dL (6.4-8.2)
--- NOTE | 2019-01-25 07:39 | NUR ---
AWAKE AND ALERT. ORIENTED X3. NO C/O AT THIS TIME. LUNGS ARE CLEAR BILATERALLY, NO COUGH NOTED. SKIN IS INTACT WTIHOUT REDNESS EXCEPT INCISION TO RIGHT HIP WHICH HAS A DRY INTACT DRESSING IN PLACE. SL TO LEFT HAND IS PATENT WITHOUT REDNESS AT INSERTION SITE. DENIES NEEDS.
--- NOTE | 2019-01-25 07:47 | MORECARE ---
CASE MANAGEMENT DISCHARGE SUMMARY PATIENT: TITO MYLES SHARP UNIT: [id number] ADM DATE: 01/22/19 AGE: 58 : 58 SEX: F ROOM/BED: D.2201 AUTHOR: FLORENCE GAINES PHYSICIAN: REFERRING PHYSICIAN: WILBER CLEARY DO DATE OF SERVICE: 01/25/19 Discharge Plan Patient Name: TITO MYLES Facility: [facility]:[place] : 1960 Planned Disposition: Home Health Service Anticipated Discharge Date: Discharge Date: Expected LOS: Initial Reviewer: [email or web address] Initial Review Date: 01/22/2019 Generated: 01/25/19 8:47 am Comments DCP- Discharge Planning Updated by [email or web address]: Marietta Mckeon on 01/25/19 6:[address] PATIENT PHYSICAL ADDRESS IS [address] [place] [address] DCP- Discharge Planning Updated by [email or web address]: Marietat Mckeon on 01/25/19 6:[address] Patient Name: TITO MYLES Admission Status: Elective Accout number: [id number] Admission Date: 01-22-2019 : 1960 Admission Diagnosis:UNILATERAL PRIMARY OSTEOARTHRITIS, RIGHT KNEE Attending: WILBER CLEARY Current LOS: 3 Anticipated DC Date: Planned Disposition: Home Health Service Primary Insurance: MEDICAID [place] Discharge Planning Comments: CM met with patient to complete initial dc planning assessment. CM educated patient on the CM role and verbal consent given by patient to complete assessment. Patient lives at home with a roommate where she is independent with her care. At discharge patient plans to return home and feels this is a safe discharge. Her Roommate will be her driver wheelchair home. CM discussed availability of home health, rehab services, and medical equipment. She would like home health at [facility] with [facility]. She has a walker at home. I will send referral to [facility] . Patient denied known discharge needs at this time. CM will continue to follow and will assist as needed with dc plans/needs. Brake Cou[address] Freight: Marietta Mckeon DCPIA - Discharge Planning Initial Assessment Updated by [email or web address]: Marietta Mckeon on 01/25/19 7:43 am * Is the patient Alert and Oriented? Yes * How many steps to enter\exit or inside your home? * PCP ZAINAB * [facility] * Preadmission Environment Home with Family * ADLs Independent * Equipment Cane Walker * List name and contact numbers for known caregivers / representatives who currently or will assist patient after discharge: VANDANA SUAREZ [phone] * Verbal permission to speak to the caregivers and representatives has been obtained from the patient. N/A * Community resources currently utilized None * Additional services required to return to the preadmission environment? Yes * Can the patient safely return to the preadmission environment? Yes * Has this patient been hospitalized within the prior 30 days at any hospital? No Coverage Notice Reviewer: [id number] Jordan Mckeon Notice Issued Date-Time: 01/25/2019 7:30 Notice Type: Patient Choice Letter Notice Delivered To: Patient Relationship to Patient: Superintendent Operating Name: Delivery Method: HAND - Hand Delivered Kerry Days: Prior Verbal Notification: Recipient Understood Notice: Yes Recipient Signature: Yes Med Rec Note Co-signed by Attending: Coverage Notice Comment: [facility] Patient Name: TITO MYLES Page 12546 at 0747 All edits/amendments must be made on the electronic document DICTATION DATE: 01/25/19746 EKG MONITOR: MICHELLE 01/25/19746 RPT#: [id number] DC DATE: STATUS: ADM IN [facility] [address] [place] [address] END OF REPORT
--- NOTE | 2019-01-25 08:00 | MORECARE ---
CASE MANAGEMENT DISCHARGE SUMMARY PATIENT: TITO MYLES SHARP UNIT: [id number] ADM DATE: 01/22/19 AGE: 58 : 58 SEX: F ROOM/BED: D.2201 AUTHOR: FLORENCE GAINES PHYSICIAN: REFERRING PHYSICIAN: WILBER CLEARY DO DATE OF SERVICE: 01/25/19 Discharge Plan Patient Name: TITO MYLES Facility: [facility]:[place] : 1960 Planned Disposition: Home Health Service Anticipated Discharge Date: Discharge Date: Expected LOS: Initial Reviewer: [email or web address] Initial Review Date: 01/22/2019 Generated: 01/25/19 9:00 am Comments DCP- Discharge Planning Updated by [email or web address]: Marietta Mckeon on 01/25/19 6:[address] PATIENT PHYSICAL ADDRESS IS [address] [place] [address] DCP- Discharge Planning Updated by [email or web address]: Marietta Mckeon on 01/25/19 6:[address] Patient Name: TITO MYLES Admission Status: Elective Accout number: [id number] Admission Date: 01-22-2019 : 1960 Admission Diagnosis:UNILATERAL PRIMARY OSTEOARTHRITIS, RIGHT KNEE Attending: WILBER CLEARY Current LOS: 3 Anticipated DC Date: Planned Disposition: Home Health Service Primary Insurance: MEDICAID [place] Discharge Planning Comments: CM met with patient to complete initial dc planning assessment. CM educated patient on the CM role and verbal consent given by patient to complete assessment. Patient lives at home with a roommate where she is independent with her care. At discharge patient plans to return home and feels this is a safe discharge. Her Roommate will be her courier delivery driver home. CM discussed availability of home health, rehab services, and medical equipment. She would like home health at [facility] with [facility]. She has a walker at home. I will send referral to [facility] . Patient denied known discharge needs at this time. CM will continue to follow and will assist as needed with dc plans/needs. Waterproofing Mixer: Marietta Mckeon DCPIA - Discharge Planning Initial Assessment Updated by [email or web address]: Marietta Mckeon on 01/25/19 7:43 am * Is the patient Alert and Oriented? Yes * How many steps to enter\exit or inside your home? * PCP ZAINAB * [facility] * Preadmission Environment Home with Family * ADLs Independent * Equipment Cane Walker * List name and contact numbers for known caregivers / representatives who currently or will assist patient after discharge: VANDANA SUAREZ [phone] * Verbal permission to speak to the caregivers and representatives has been obtained from the patient. N/A * Community resources currently utilized None * Additional services required to return to the preadmission environment? Yes * Can the patient safely return to the preadmission environment? Yes * Has this patient been hospitalized within the prior 30 days at any hospital? No External Providers External Provider: [facility] Next Contact Date: Service Request Date: Service Type: Resolution: Reviewer: Comments: Coverage Notice Reviewer: [id number] Jordan Mckeon Notice Issued Date-Time: 01/25/2019 7:30 Notice Type: Patient Choice Letter Notice Delivered To: Patient Relationship to Patient: [place] Attendant Name: Delivery Method: HAND - Hand Delivered Kerry Days: Prior Verbal Notification: Recipient Understood Notice: Yes Recipient Signature: Yes Med Rec Note Co-signed by Attending: Coverage Notice Comment: [facility] Last DP export: 01/25/19 6:47 am Patient Name: TITO MYLES Page 82166 at 0800 All edits/amendments must be made on the electronic document DICTATION DATE: 01/25/19758 PHARMACOVIGILANCE SAFETY EXPERT: MICHELLE 01/25/19 0759 RPT#: [id number] DC DATE: STATUS: ADM IN [facility] [address] [place] [address] END OF REPORT
[2019-01-25 08:28] VITALS: BP 121/42
--- NOTE | 2019-01-25 09:00 | NUR ---
ATE MOST OF BREAKFAST. AMBULATED IN HALLWAY IWTH PT. DENIES NEEDS.
[2019-01-25] MEDS ORDERED: VISTARIL50 MG PO (09:21)
[2019-01-25] MEDS ORDERED: DILAUDID4 MG PO (09:22)
[2019-01-25] MEDS ORDERED: ELIQUIS2.5 MG PO (09:22)
[2019-01-25] MEDS ORDERED: KEFLEX500 MG PO (09:23)
--- NOTE | 2019-01-25 11:35 | MORECARE ---
CASE MANAGEMENT DISCHARGE SUMMARY PATIENT: TITO MYLES SHARP UNIT: [id number] ADM DATE: 01/22/19 AGE: 58 : 58 SEX: F ROOM/BED: D.2201 AUTHOR: FLORENCE GAINES PHYSICIAN: REFERRING PHYSICIAN: WILBER CLEARY DO DATE OF SERVICE: 01/25/19 Discharge Plan Patient Name: TITO MYLES Facility: [facility]:[place] : 1960 Planned Disposition: Home Health Service Anticipated Discharge Date: Discharge Date: Expected LOS: Initial Reviewer: [id number] Initial Review Date: 01/22/2019 Generated: 01/25/19 12:34 pm Comments DCP- Discharge Planning Updated by [email or web address]: Marietta Mckeon on 01/25/19 10:[address] PATIENT DISCHARGING HOME TODAY WITH [employer] [facility], THEY WILL ACCEPT THE PATIENT PER E[facility]ICE. CM TO FOLLOW NEEDED DCP- Discharge Planning Updated by [email or web address]: Marietta Mckeon on 01/25/19 6:[address] PATIENT PHYSICAL ADDRESS IS [address] [place] [address] DCP- Discharge Planning Updated by [email or web address]: Marietta Mckeon on 01/25/19 6:[address] Patient Name: TITO MYLES Admission Status: Elective Accout number: [id number] Admission Date: 01-22-2019 : 1960 Admission Diagnosis:UNILATERAL PRIMARY OSTEOARTHRITIS, RIGHT KNEE Attending: WILBER CLEARY Current LOS: 3 Anticipated DC Date: Planned Disposition: Home Health Service Primary Insurance: MEDICAID [place] Discharge Planning Comments: CM met with patient to complete initial dc planning assessment. CM educated patient on the CM role and verbal consent given by patient to complete assessment. Patient lives at home with a roommate where she is independent with her care. At discharge patient plans to return home and feels this is a safe discharge. Her Roommate will be her otr refrigerated cdl truck driver home. CM discussed availability of home health, rehab services, and medical equipment. She would like home health at [place] with [facility]. She has a walker at home. I will send referral to [facility] . Patient denied known discharge needs at this time. CM will continue to follow and will assist as needed with dc plans/needs. Director Industrial Nursing: Marietta Mckeon DCPIA - Discharge Planning Initial Assessment Updated by [email or web address]: Marietta Mckeon on 01/25/19 7:43 am * Is the patient Alert and Oriented? Yes * How many steps to enter\exit or inside your home? * PCP ZAINAB * [facility] * Preadmission Environment Home with Family * ADLs Independent * Equipment Cane Walker * List name and contact numbers for known caregivers / representatives who currently or will assist patient after discharge: VANDANA STEWARTTZ [phone] * Verbal permission to speak to the caregivers and representatives has been obtained from the patient. N/A * Community resources currently utilized None * Additional services required to return to the preadmission environment? Yes * Can the patient safely return to the preadmission environment? Yes * Has this patient been hospitalized within the prior 30 days at any hospital? No Coverage Notice Reviewer: [id number] - Marietta Mckeon Notice Issued Date-Time: 01/25/2019 7:30 Notice Type: Patient Choice Letter Notice Delivered To: Patient Relationship to Patient: Sensor Specialist Name: Delivery Method: HAND - Hand Delivered Kerry Days: Prior Verbal Notification: Recipient Understood Notice: Yes Recipient Signature: Yes Med Rec Note Co-signed by Attending: Coverage Notice Comment: [facility] Last DP export: 01/25/19 7:00 am Patient Name: TITO MYLES Page 35481 at 1135 All edits/amendments must be made on the electronic document DICTATION DATE: 01/25/19 1134 TELEPHONE INFORMATION CLERK: MICHELLE 01/25/19 1134 RPT#: [id number] DC DATE: STATUS: ADM IN [facility] [address] [place] [address] END OF REPORT
[2019-01-25 12:42] VITALS: BP 120/43
--- NOTE | 2019-01-25 13:15 | NUR ---
DRESSING TO RIGHT HIP CHANGED PRIOR TO DISCHARGE HOME. AMBULATORY WITH FAMILY.DISCHARGE INSTRUCTIONS GIVEN BOTH VERBALLY AND WRITTEN. ALL QUESTIONS ANSWERED. PATIENT VERBALIZED UNDERSTANDING OF SAME. NEEDED PRESCRIPTIONS GIVEN TO PATIENT. SL TO LEFT HAND D/C WITH CATHETER INTACT. ALL BELONGINGS WITH PATIENT.
--- NOTE | 2019-01-28 14:14 | MORECARE ---
CASE MANAGEMENT DISCHARGE SUMMARY PATIENT: TITO MYLES SHARP UNIT: [id number] ADM DATE: 01/22/19 AGE: 58 : 58 SEX: F ROOM/BED: D.2201 AUTHOR: EDER,DOC PHYSICIAN: REFERRING PHYSICIAN: WILBER CLEARY DO DATE OF SERVICE: 01/28/19 Discharge Plan Patient Name: TITO MYLES Facility: [facility]:[place] : 1960 Planned Disposition: Home Health Service Anticipated Discharge Date: Discharge Date: 01/25/2019 Expected LOS: Initial Reviewer: [id number] Initial Review Date: 01/22/2019 Generated: 01/28/19 3:14 pm Comments DCP- Discharge Planning Updated by [email or web address]: Marietta Mckeon on 01/25/19 10:[address] PATIENT DISCHARGING HOME TODAY WITH [facility], THEY WILL ACCEPT THE PATIENT PER EUNICE. CM TO FOLLOW NEEDED DCP- Discharge Planning Updated by [email or web address]: Marietta Mckeon on 01/25/19 6:[address] PATIENT PHYSICAL ADDRESS IS [address] [place] [address] DCP- Discharge Planning Updated by [email or web address]: Marietta Mckeon on 01/25/19 6:[address] Patient Name: TITO MYLES Admission Status: Elective Accout number: [id number] Admission Date: 01-22-2019 : 1960 Admission Diagnosis:UNILATERAL PRIMARY OSTEOARTHRITIS, RIGHT KNEE Attending: WILBER CLEARY Current LOS: 3 Anticipated DC Date: Planned Disposition: Home Health Service Primary Insurance: MEDICAID [place] Discharge Planning Comments: CM met with patient to complete initial dc planning assessment. CM educated patient on the CM role and verbal consent given by patient to complete assessment. Patient lives at home with a roommate where she is independent with her care. At discharge patient plans to return home and feels this is a safe discharge. Her Roommate will be her delivery driver home. CM discussed availability of home health, rehab services, and medical equipment. She would like home health at [place]. She has a walker at home. I will send referral to [facility] . Patient denied known discharge needs at this time. CM will continue to follow and will assist as needed with dc plans/needs. Sales And Marketing Assistant: Marietta Mckeon DCPIA - Discharge Planning Initial Assessment Updated by [email or web address]: Marietta Mckeon on 01/25/19 7:43 am * Is the patient Alert and Oriented? Yes * How many steps to enter\exit or inside your home? * PCP ZAINAB * [facility] * Preadmission Environment Home with Family * ADLs Independent * Equipment Cane Walker * List name and contact numbers for known caregivers / representatives who currently or will assist patient after discharge: VANDANA SUAREZ [phone] * Verbal permission to speak to the caregivers and representatives has been obtained from the patient. N/A * Community resources currently utilized None * Additional services required to return to the preadmission environment? Yes * Can the patient safely return to the preadmission environment? Yes * Has this patient been hospitalized within the prior 30 days at any hospital? No Coverage Notice Reviewer: [id number] - Marietta Mckeon Notice Issued Date-Time: 01/25/2019 7:30 Notice Type: Patient Choice Letter Notice Delivered To: Patient Relationship to Patient: Electromechanisms Design Drafter Name: Delivery Method: HAND - Hand Delivered Kerry Days: Prior Verbal Notification: Recipient Understood Notice: Yes Recipient Signature: Yes Med Rec Note Co-signed by Attending: Coverage Notice Comment: [facility] Last DP export: 01/25/19 10:35 am Patient Name: TITO MYLES Page 88927 at 1414 All edits/amendments must be made on the electronic document DICTATION DATE: 01/28/191412 ASSET ADMINISTRATOR: MICHELLE 01/28/19 141 RPT#: [id number] DC DATE:01/25/19 STATUS: DIS IN [facility] [address] [place] [address] END OF REPORT
--- NOTE | 2019-02-05 10:37 | OP ---
PATIENT NAME: TITO MYLES MEDICAL RECORD: [id number] :58 LOCATION:D.MS [facility]2200 ADMISSION DATE:01/22/19 SURGEON: JOAO CLEARY DO DATE OF OPERATION: 01/22/2019 PROCEDURE PERFORMED: Right total hip arthroplasty. PREOPERATIVE DIAGNOSIS: Right hip osteoarthritis. POSTOPERATIVE DIAGNOSIS: Right hip osteoarthritis. INDICATIONS: Ms. Car is a 58-year-old female who had her left hip replaced within the last year. Her right hip had been hurting her as well. She wanted it replaced as well. She was tired of dealing with the pain and affecting her activities of daily living. She was aware of the risks including infection, bleeding, damage to nerves and vessels, need for further surgery, fracture, and continued pain and she signed the consent. SURGEON: Joao Cleary DO MEDICAL RECORD SPECIALIST: I was assisted by Catarino Galeano, advanced nurse practitioner. DESCRIPTION OF PROCEDURE: The patient received a block per anesthesia in the preoperative area, was taken to the operative suite, laid in the supine position, sedated and intubated and then moved over to the position of the [place] table. When she was on the [place] table, the right hip was prepped and draped in sterile fashion. Timeout was performed, everyone was in agreement as to the correct side, site, patient and procedure. Incision then began over the tensor fascia haris muscle. Careful dissection was made down to the tensor fascia haris. The tensor fascia haris fascia was incised and the fascia was taken anteriorly, the muscle belly posterior, opened up the rectus and fascia was then incised. Rectus was taken medially and the tensor fascia haris laterally. The capsule was then exposed. Hohmanns were placed on either side of the femoral neck. Capsule was opened. Prior to this, the ascending branch of the lateral femoral circumflex was encountered, tied off and coagulated with an Aquamantys. Once the capsule was exposed, the capsule was opened and tagged with #2 Ethibond. Hohmanns were then moved inside the capsule around the neck and the neck cut was made. Once the neck cut was made, the head was removed and then a Charnley was placed. The acetabulum was exposed and the labrum was removed from around the acetabulum as well as the pulvinar in the anterior portion. Reaming then began from a 38, went up to a 46 and a 46 cup was impacted into place and then the liner was placed and impacted. The femur was then exposed and releases were done in order to get the femur exposed. First the canal finder was used and then the cookie cutter was used to get more lateral and broaching began with a 4, the 4 fit very tightly, went to a 5 and the 5 was very tight as well. She has a very small canal and her head was small too. The 5 fit and then we trialed a -6 neck, this seemed to be adequate length compared to the other side. This was confirmed on x-ray. This was then removed and irrigation was done. The stem was then placed and the head was put on and the hip was reduced. X-rays were taken. The hip seemed to be in good position. No fractures were seen in the femur and had good lengths compared to the other side. The wound was then thoroughly irrigated. Tobramycin and vancomycin powder was placed in the wound as well as Surgicel powder and the tensor fascia haris fascia was closed with #1 Vicryl, first in a ojnbwe-py-ptzcm and then a running locking stitch by Catarino Galeano APRN. Once that was closed, the skin was closed with 2-0 OPERATIVE REPORT [id number] TITO MYLES Vicryl in inverted interrupted fashion, 4-0 Monocryl ran on the skin, and Prineo glue on the skin. The patient was then awakened and taken to recovery in stable condition. Blood loss was 250 mL proximally. COMPLICATIONS: None. TRANSINT:[id number] Voice Confirmation ID: [id number] DOCUMENT ID: [id number] 02/05/2019 Edited for bailey Galeano. JOAO CLEARY DO at 1037 CC: [id number] DICTATION DATE: 01/22/19 1130 DIRECTOR CREDIT RISK: 01/22/19 1156 DIS IN 01/25/19 [place] [id number]
== END 2019-01-25 13:15 | disposition home health service (06) | DRG 470 ==
LOC: D.MS 01-22 07:06 → D.SDCHOLD 01-22 07:06 → D.MS 01-22 12:31
PROVIDERS: Emergency Medicine; ADMIT Orthopaedic Surgery; ATTEND Orthopaedic Surgery
PROC: 0SR90J9 Replacement of Right Hip Joint with Synthetic Substitute, Cemented, Open Approach (ICD-10-PCS; principal; 2019-01-22 09:00)
DX: M16.11 Unilateral primary osteoarthritis, right hip (principal); D62 Acute posthemorrhagic anemia; J45.909 Unspecified asthma, uncomplicated; K21.9 Gastro-esophageal reflux disease without esophagitis; K58.9 Irritable bowel syndrome, unspecified; M19.90 Unspecified osteoarthritis, unspecified site; M54.9 Dorsalgia, unspecified; F41.9 Anxiety disorder, unspecified; F41.0 Panic disorder [episodic paroxysmal anxiety]; I20.9 Angina pectoris, unspecified; I10 Essential (primary) hypertension; E78.5 Hyperlipidemia, unspecified; N95.9 Unspecified menopausal and perimenopausal disorder

== ENCOUNTER 2019-02-13 12:01 | Inpatient (IN) | payer MEDICAID ==
[2019-02-13] VITALS (14 sets, daily range): BP systolic 78–164; BP diastolic 30–82; BMI 39.8
[~2019-02-13] VITALS: Ht 151.1 cm; Wt 90.7 kg
[~2019-02-13 12:01] MED LIST changes: +ASPIRIN EC81 M1 PO; +DILAUDID4 MG PO; +ELIQUIS2.5 MG PO; +KEFLEX500 MG PO; +LISINOPRIL20 MG PO; +NITROQUICK0.4 MG SL; +OXYBUTYNIN CHLOR5 M1 PO; +ZETIA10 MG PO
[2019-02-13 12:39] LABS: BASOPHILS 0.1 % (0-2); EOSINOPHILS 4.4 % (0-7); HEMATOCRIT 27.4 % (36.0-48.0); HEMOGLOBIN 9.1 g/dL (12-16); IMMATURE GRANULOCYTES 0.1 % (0-5); LYMPHOCYTES 11.1 % (15-50); MCH 29.7 pg (26.0-34.0); MCHC 33.2 g/dL (31.0-37.0); MCV 89.5 fL (80.0-100.0); MEAN PLATELET VOLUME 9.2 fL (7.4-10.4); MONOCYTES 7.6 % (2-11); NEUTROPHILS 76.7 % (40-80); PLATELET COUNT 238 10x3/uL (130-400); RBC 3.06 10x6/uL (4.00-5.40); RDW 13.6 % (11.5-14.5); WBC 8.2 10x3/uL (4.8-10.8)
--- NOTE | 2019-02-13 12:51 | NUR ---
RECEIVED PT TO ROOM 2230 VIA WHEELCHAIR, PT WAS ABLE TO AMBULATE FROM WHEELCHAIR TO BED. PT A/O X4, RESP EVEN AND NONLABORED ON RA. REDNESS NOTED TO RT HIP AND WARM TO TOUCH. ORIENTED PT TO ROOM AND CALL LIGHT. WILL ASSESS PT AND START PLAN OF CARE.
--- NOTE | 2019-02-13 13:44 | NUR ---
NOTIFIED ANESTHESIA THAT PT HAS NO IV AT THIS TIME. WAS INFORMED THAT ANESTHESIA WILL START ONE IN OR. CONSENTS SIGNED AND PLACED ON CHART. IV FLUIDS READY.
--- NOTE | 2019-02-13 14:09 | NUR ---
TO OR VIA BED, NAD NOTED.
[2019-02-13 14:33] LABS: ERYTHROCYTE SEDIMENTATION RATE 74 mm/hr (0-30)
--- NOTE | 2019-02-13 15:32 | NUR ---
ORION BLADE SETTINGS 2&170
--- NOTE | 2019-02-13 17:47 | NUR ---
RECEIVED PT BACK TO ROOM 2230. PT A/O X4, RESP EVEN AND NONLABORED ON RA. WOUND VAC TO RT HIP. RT WRIST IV NOTED. PT DENIES ANY PAIN, CALL LIGHT IN REACH,NAD NOTED, WILL CONTINUE TO MONITOR.
--- NOTE | 2019-02-13 19:40 | NUR ---
PT SITTING UP IN BED WITHOUT DISTRESS, ALERT AND ORIENTED. STATES NO PAIN, JUST SORENESS AT THIS TIME. RIGHT HIP INCISION WITH WOUND VAC, DRESSING CDI. WOUND VAC ON AND SEALED. HIP IS RED, SWOLLEN AND WARM TO TOUCH AROUND SITE. IV RIGHT WRIST INFUSING 1/2NS @ 50. ASSISTED PT UP TO BEDSIDE COMMODE WITH MINIMAL ASSIST. VOIDED DARK YELLOW URINE. ASSISTED PT BACK TO BED AND PLACED SCDS ON PT. GAVE PT INCENTIVE SPIROMETER AND PROVIDED EDUCATION ON USE, VERBALIZED UNDERSTANDING. NO OTHER NEEDS OR COMPLAINTS AT THIS TIME. CL IN REACH, WILL CTM
[2019-02-14] VITALS (9 sets, daily range): BP systolic 89–112; BP diastolic 27–46
--- NOTE | 2019-02-14 00:30 | NUR ---
PT BLOOD PRESSURE TRENDING DOWN, SEE FLOWSHEET. CALLED [facility] GAXIOLAN, ORDERS FOR 500ML BOLUS AND TO CALL BACK IF NO CHANGE. GAVE BOLUS, PT BP TRENDING UP. PT IS ASYMPTOMATIC WITH NO COMPLAINTS. WILL CTM
[2019-02-14 06:34] LABS: HEMATOCRIT 20.3 % (36.0-48.0); MCH 29.4 pg (26.0-34.0); MEAN PLATELET VOLUME 9.3 fL (7.4-10.4); RDW 13.5 % (11.5-14.5)
[2019-02-14 06:44] LABS: ALBUMIN 2.3 g/dL (3.4-5.0); ANION GAP 15.2 mmol/L (8-16); BILIRUBIN - TOTAL 0.92 mg/dL (0.2-1.3); CALCIUM 7.4 mg/dL (8.5-10.1); CARBON DIOXIDE 20.3 mmol/L (21.0-32.0); CREATININE - SERUM 1.7 mg/dL (0.6-1.3); POTASSIUM - SERUM 4.5 mmol/L (3.5-5.1); PROTEIN - SERUM 5.4 g/dL (6.4-8.2)
[2019-02-14 07:00] LABS: HEMOGLOBIN 6.7 g/dL (12-16); RBC 2.28 10x6/uL (4.00-5.40)
--- NOTE | 2019-02-14 08:23 | OP ---
PATIENT NAME: TITO CLARK MEDICAL RECORD: [id number] :58 LOCATION: D.2231 ADMISSION DATE:02/13/19 SURGEON: WILBER CLEARY DO DATE OF OPERATION: 02/13/2019 PROCEDURE PERFORMED: Right hip incision and debridement with head exchange. PREOPERATIVE DIAGNOSIS: Right hip postoperative periprosthetic joint infection. POSTOPERATIVE DIAGNOSIS: Right hip postoperative periprosthetic joint infection. INDICATIONS: Ms. Clark is a 58-year-old female who 3 weeks ago underwent a right total hip. Yesterday, she started to notice more pain and a little red spot in the inferior incision and then overnight it grew and got quite large and red. She was very concerned, did not have any fevers but has been very concerned about it and she called the office. She came in today and we looked at and she had a very large hard thigh, with likely purulence underneath it. Her CRP was elevated at 11. She was direct admitted and consented for the procedure. She is aware of the risks including fracture, bleeding, need for further surgery, removal of implants and 6 weeks of IV antibiotics and blood clots and even . She signed the consent. SURGEON: Wilber Cleary DO DESCRIPTION OF THE PROCEDURE: The patient was taken to the operative suite, laid in the supine position. She was sedated and intubated and moved over to the [place] table and positioned. The right hip was prepped and draped in sterile fashion. Timeout was performed and everyone was in agreeance as correct side, site, and patient and procedure. An incision was then began at the inferior portion of the old incision, skin excision was made and copious amounts of purulent fluid gushed out of the wound. The cultures were taken at that time. The patient was given 1 gram of vancomycin. We irrigated with 3 liters of normal saline down to the tensor fascia haris fascia. This was then opened. The sutures were removed down to the joint. Again, 3 more liters were used for irrigation. The hip was also debrided. The hip was then dislocated and the head was popped off and then irrigated with Bactisure and 3 more liters of normal saline were used for irrigating. Hip was then reduced and confirmed reduction on x-ray. The stem was not loose at that time and was in good position. The tensor fascia haris was then closed with #2 Ethibond in a ctrfpr-ja-bnxsc fashion. There was more debridement then done on the superficial layer and another 3 liters normal saline was used to irrigate. The skin was then closed with 2-0 Monocryl inverted interrupted fashion and 4-0 Monocryl in the skin and a Prevena VAC was placed on the incision. She was then awakened and taken to the recovery in stable condition. Blood loss was approximately 200 mL. COMPLICATION: NONE. TRANSINT:[id number] Voice Confirmation ID: [id number] DOCUMENT ID: [id number] OPERATIVE REPORT [id number] TITO CLARK MICHAEL D, DO at 0823 CC: [id number] DICTATION DATE: 02/13/19 164 SPA CONSULTANT: 02/13/19 2256 ADM IN [facility] [address] [place] [address]
--- NOTE | 2019-02-14 08:45 | NUR ---
PT CO OF IV HURTING. IV INFILTATED AND SWOLLEN. SPOKE WITH SPN WHO DC IV WITH INSTRUCTOR. 20 G RESITED TO L AC. FLUSHED WELL. NO S/S OF ACUTE DISTRESS. CL IN PLACE.
--- NOTE | 2019-02-14 18:06 | NUR ---
ASSISTED PT TO BR. CO OF NAUSEA. PHENERGAN GIVEN PER MD ORDER. NO S/S OF ACUTE DISTRESS. CL IN PLACE.
--- NOTE | 2019-02-14 19:44 | NUR ---
REQUESTING PAIN MEDICATION, BP IS 112/44. TORADOL ADMINISTERED PER ORDERS, PT STATES SHE OVER DID IT IN PT TODAY, WAS IN AGREEMENT THAT GOAL FOR THIS SHIFT WOULD BE TO GET PAIN MANAGEABLE AND ABLE TO TRANSFER WITH EASE PRIOR SHIFT NOTED. NURSE ASSISTED TO CHAIR, THEN TO TOILET, GRIMACING NOTED. WILL NOTE ANY CHANGE.
[2019-02-15] VITALS (7 sets, daily range): BP systolic 112–151; BP diastolic 46–61
--- NOTE | 2019-02-15 04:03 | NUR ---
I have reviewed this patient and I concur with the Shift Assessment completed by the Licensed Practical Nurse today this shift.
[2019-02-15 06:35] LABS: BASOPHILS 0.3 % (0-2); EOSINOPHILS 8.9 % (0-7); IMMATURE GRANULOCYTES 0.3 % (0-5); LYMPHOCYTES 13.2 % (15-50); MCH 28.9 pg (26.0-34.0); MCHC 33.3 g/dL (31.0-37.0); MEAN PLATELET VOLUME 9.2 fL (7.4-10.4); MONOCYTES 8.4 % (2-11); NEUTROPHILS 68.9 % (40-80); PLATELET COUNT 182 10x3/uL (130-400); RDW 14.5 % (11.5-14.5); WBC 6.2 10x3/uL (4.8-10.8)
[2019-02-15 06:46] LABS: HEMATOCRIT 25.2 % (36.0-48.0); HEMOGLOBIN 8.4 g/dL (12-16); MCV 86.6 fL (80.0-100.0); RBC 2.91 10x6/uL (4.00-5.40)
[2019-02-15 07:02] LABS: ALBUMIN 2.3 g/dL (3.4-5.0); ANION GAP 16.6 mmol/L (8-16); BILIRUBIN - TOTAL 1.11 mg/dL (0.2-1.3); CALCIUM 7.7 mg/dL (8.5-10.1); CARBON DIOXIDE 18.5 mmol/L (21.0-32.0); POTASSIUM - SERUM 4.1 mmol/L (3.5-5.1); PROTEIN - SERUM 5.2 g/dL (6.4-8.2)
[2019-02-15 07:03] LABS: CREATININE - SERUM 3.1 mg/dL (0.6-1.3)
--- NOTE | 2019-02-15 07:50 | NUR ---
PT SITTING UP IN CHAIR AT THE BEDSIDE. IV LOCATED TO LEFT AC RUNNING 1/2NS AT @ 50ML/HR. NO S/S OF DISTRESS, WILL CONTINUE TO MONITOR.
--- NOTE | 2019-02-15 19:15 | NUR ---
RECEIVED CARE FROM DAY NURSE. SITTING IN BEDSIDE CHAIR. REPORTS NO NEEDS AT THIS TIME. CALL LIGHT AT SIDE. IV INFUSING PER ORDER TO LEFT AC.
--- NOTE | 2019-02-15 19:30 | NUR ---
BLADDER SCAN WITH RESULT OF 244ML. ATTEMPTED CATH X6 TIMES WITH NO SUCCESS. REFUSED FURTHER ATTEMPTS.
--- NOTE | 2019-02-15 21:00 | NUR ---
SPOKE WITH [facility] CREWS APN ABOUT INABILITY TO GET TIDWELL PLACED.
--- NOTE | 2019-02-15 23:34 | NUR ---
PAGED [facility] PONCE FOR PT REQUEST FOR COUGH MEDICINE.
[2019-02-15 23:48] LABS: APPEARANCE CLEAR (CLEAR); BILIRUBIN NEGATIVE (NEGATIVE); COLOR YELLOW (YELLOW); GLUCOSE NEGATIVE (NEGATIVE); KETONE NEGATIVE (NEGATIVE); NITRITE NEGATIVE (NEGATIVE); PROTEIN NEGATIVE (NEGATIVE); UROBILINOGEN NORMAL (NORMAL)
--- NOTE | 2019-02-15 23:58 | NUR ---
PER [facility] METALLURGICAL TESTER BLADDER SCAN AT 0400 IN AM AND IF GREATER THAN [address] TIDWELL AGAIN.
--- NOTE | 2019-02-16 03:29 | NUR ---
POST 500ML URINATION BLADDER SCAN OF 272ML. REFUSSES TIDWELL AT THIS TIME STATING SHE WILL ONLY DO IT IF SHE CANT FEEL IT.
[2019-02-16 04:00] VITALS: BP 146/57
--- NOTE | 2019-02-16 04:31 | NUR ---
I have reviewed this patient and I concur with the Shift Assessment completed by the Licensed Practical Nurse today this shift.
[2019-02-16 05:22] LABS: BASOPHILS 0.3 % (0-2); EOSINOPHILS 8.5 % (0-7); HEMATOCRIT 24.8 % (36.0-48.0); HEMOGLOBIN 8.3 g/dL (12-16); IMMATURE GRANULOCYTES 0.5 % (0-5); LYMPHOCYTES 11.1 % (15-50); MCH 29.3 pg (26.0-34.0); MCHC 33.5 g/dL (31.0-37.0); MCV 87.6 fL (80.0-100.0); MEAN PLATELET VOLUME 8.8 fL (7.4-10.4); MONOCYTES 8.5 % (2-11); NEUTROPHILS 71.1 % (40-80); PLATELET COUNT 184 10x3/uL (130-400); RBC 2.83 10x6/uL (4.00-5.40); RDW 14.4 % (11.5-14.5); WBC 7.3 10x3/uL (4.8-10.8)
[2019-02-16 05:25] LABS: ALBUMIN 2.4 g/dL (3.4-5.0); ANION GAP 15.1 mmol/L (8-16); BILIRUBIN - TOTAL 0.8 mg/dL (0.2-1.3); CARBON DIOXIDE 20.1 mmol/L (21.0-32.0); CREATININE - SERUM 3.4 mg/dL (0.6-1.3); POTASSIUM - SERUM 4.2 mmol/L (3.5-5.1)
[2019-02-16 09:04] VITALS: BP 154/49
--- NOTE | 2019-02-16 10:58 | NUR ---
PT RESTING IN BED. NO SIGNS OF DISTRESS. IV TO LEFT AC AND RIGHT UPPER ARM PATENT NO REDNESS OR TENDERNESS. HAS WOUND VAC TO RIGHT HIP AND DRESSING INTACT. DENIES ANY FURTHER NEED AT THIS TIME. CALL LIGHT IN REACH. BED LOW POSITION. NO FAMILY AT BEDSIDE AT THIS TIME.
[2019-02-16 12:30] VITALS: BP 184/54
--- NOTE | 2019-02-16 15:00 | NUR ---
I have reviewed this patient and I concur with the Shift Assessment completed by the Licensed Practical Nurse today this shift.
[2019-02-16 16:25] VITALS: BP 157/67
--- NOTE | 2019-02-16 19:15 | NUR ---
RECEIVED CARE FROM DAY NURSE. LYING IN BED WITH EYES CLOSED. RESP EVEN AND UNLABORED. CALL LIGHT AT SIDE. IV INFUSING PER ORDER TO PATENT LEFT AC. WOUND VAC TO RIGHT HIP COMPRESSED. CONINUOUS VITALS IN PLACE POST PROCEDURE.
[2019-02-16 20:00] VITALS: BP 153/68
[2019-02-17] VITALS (7 sets, daily range): BP systolic 124–189; BP diastolic 46–77
--- NOTE | 2019-02-17 05:15 | NUR ---
RIGHT HIP WEAPING
--- NOTE | 2019-02-17 05:25 | NUR ---
I have reviewed this patient and I concur with the Shift Assessment completed by the Licensed Practical Nurse today this shift.
[2019-02-17 05:34] LABS: BASOPHILS 0.1 % (0-2); EOSINOPHILS 3.5 % (0-7); HEMATOCRIT 22.9 % (36.0-48.0); HEMOGLOBIN 7.6 g/dL (12-16); IMMATURE GRANULOCYTES 1.1 % (0-5); LYMPHOCYTES 15.1 % (15-50); MCH 29.2 pg (26.0-34.0); MCHC 33.2 g/dL (31.0-37.0); MCV 88.1 fL (80.0-100.0); MEAN PLATELET VOLUME 8.8 fL (7.4-10.4); MONOCYTES 10.1 % (2-11); NEUTROPHILS 70.1 % (40-80); PLATELET COUNT 182 10x3/uL (130-400); RDW 14.3 % (11.5-14.5); WBC 7.1 10x3/uL (4.8-10.8)
[2019-02-17 05:50] LABS: ALBUMIN 2.1 g/dL (3.4-5.0); ANION GAP 17.9 mmol/L (8-16); BILIRUBIN - TOTAL 0.87 mg/dL (0.2-1.3); CALCIUM 7.9 mg/dL (8.5-10.1); CARBON DIOXIDE 18.6 mmol/L (21.0-32.0); CREATININE - SERUM 3.4 mg/dL (0.6-1.3); POTASSIUM - SERUM 4.5 mmol/L (3.5-5.1); PROTEIN - SERUM 4.8 g/dL (6.4-8.2)
--- NOTE | 2019-02-17 08:16 | OP ---
PATIENT NAME: TITO CLARK MEDICAL RECORD: [id number] :58 LOCATION: D.2231 ADMISSION DATE:02/13/19 SURGEON: JOAO CLEARY DO DATE OF OPERATION: 02/16/2019 PROCEDURE PERFORMED: Right hip irrigation and debridement. PREOPERATIVE DIAGNOSIS: Right hip infection. POSTOPERATIVE DIAGNOSIS: Right hip infection. INDICATIONS: Ms. Clark is a 58-year-old female who underwent a right total hip approximately 3 weeks ago underwent an I&D with a head exchange on Monday the , she was doing well and no fevers and then started to develop more redness on the thigh like she did before she made the first I&D and before it got out of control, it was delivered and taken back and washed out and made sure there is no infection in there. The patient had been on a few different antibiotics and was started on Levaquin and cefepime. The cultures just resulted to give us the antibiotics to treat her with. She was okay with that and knew that if this time it did not work with the washout, we have to do an explant of her hip and put up an antibiotic spacer. She was okay with that too and was aware of the risks of further infection, bleeding, damage to the nerves and vessels, need for further surgery, blood clots, and even and signed the consent. SURGEON: Joao Cleary DO DESCRIPTION OF THE PROCEDURE: The patient was taken to the operative suite, laid in the supine position, sedated, intubated and moved over to the [place] table and once she was positioned, a timeout was performed, everyone was in agreement with the correct side, site, patient and procedure. She has been dosed on the antibiotics on the floor, so no antibiotics were given. The right hip was then prepped and draped in sterile fashion and a timeout had been performed. The incision began on the inferior portion of the incision. An incision was made and serosanguineous fluid gushed out of the wound. This was then irrigated with 3 liters of normal saline and down to the hip prosthesis. The tensor fascia haris was opened up. There was no gross purulence in the wound or down the prosthesis. The wound was then irrigated with 3 liters of normal saline. Then, a liter of Bactisure was set up for a few minutes and then another pulse examiner rating clerk was used and 3 more liters of normal saline were used to irrigate the wound. The tensor fascia haris fascia was then closed with a #2 nylon in a bailmt-uk-komzl fashion and the skin was closed after antibiotic powder was placed in deep. This was placed prior to closing the fascia and then a drain was placed coming out laterally in the subq space. The skin was then closed with 2-0 Monocryl in an inverted interrupted fashion and 4-0 Monocryl around the skin. Then, incisional VAC was placed. She had a blister from the Prevena, so an incisional VAC was carefully placed just over the wound as to not irritate the skin, the VAC held well and the drain was then secured into place with #2 Tegaderms. She was awakened then and then taken to the recovery in stable condition. Blood loss approximately 100 mL. COMPLICATIONS: None. OPERATIVE REPORT [id number] JULIOCESARAKIKOTITO Alan TRANSINT:[id number] Voice Confirmation ID: [id number] DOCUMENT ID: [id number] JOAO CLEARY DO at 0816 CC: [id number] DICTATION DATE: 02/16/19 1543 PROVIDER RELATIONS SPECIALIST: 02/16/19 1827 ADM IN [facility] [address] [place] [address]
--- NOTE | 2019-02-17 11:15 | NUR ---
PT RESTING IN BED. NO SIGNS OF DISTRESS. IV TO LEFT AC AND RIGHT UPPER ARM PATENT NO REDNESS OR TENDERNESS. HAS WOUND VAC AND HEMOVAC TO RIGHT HIP DRESSING CLEAN AND INTACT. DENIES ANY FURTHER NEED AT THIS TIME. CALL LIGHT IN REACH. BED LOW POSITION. FAMILY AT BEDSIDE AT THIS TIME.
--- NOTE | 2019-02-17 12:35 | MORECARE ---
CASE MANAGEMENT DISCHARGE SUMMARY PATIENT: TITO MYLES SHARP UNIT: [id number] ADM DATE: 02/13/19 AGE: 58 : 58 SEX: F ROOM/BED: D.2231 AUTHOR: FLORENCE GAINES PHYSICIAN: REFERRING PHYSICIAN: WILBER CLEARY DO DATE OF SERVICE: 02/17/19 Discharge Plan Patient Name: TITO MYLES Facility: [facility]:[place] : 1960 Planned Disposition: Anticipated Discharge Date: Discharge Date: Expected LOS: Initial Reviewer: [email or web address] Initial Review Date: 02/17/2019 Generated: 02/17/19 1:34 pm DCPIA - Discharge Planning Initial Assessment Updated by [id number]: Gertrudis Whitehead on 02/17/19 12:34 pm * Is the patient Alert and Oriented? Yes * PCP [facility] * [facility] * Preadmission Environment Home with Family * ADLs Independent * Equipment Cane Walker * Community resources currently utilized Home Health * Please name any agencies selected above. [facility] * Additional services required to return to the preadmission environment? No * Can the patient safely return to the preadmission environment? Yes * Has this patient been hospitalized within the prior 30 days at any hospital? No Patient Name: TITO MYLES Page [phone] at 1235 All edits/amendments must be made on the electronic document DICTATION DATE: 02/17/19 1234 TANK WASHER: MICHELLE 02/17/19 1234 RPT#: [id number] DC DATE: STATUS: ADM IN [facility] [address] [place] [address] END OF REPORT
--- NOTE | 2019-02-17 12:43 | MORECARE ---
CASE MANAGEMENT DISCHARGE SUMMARY PATIENT: TITO MYLES SHARP UNIT: [id number] ADM DATE: 02/13/19 AGE: 58 : 58 SEX: F ROOM/BED: D.2231 AUTHOR: FLORENCE GAINES PHYSICIAN: REFERRING PHYSICIAN: WILBER CLEARY DO DATE OF SERVICE: 02/17/19 Discharge Plan Patient Name: TITO MYLES Facility: [facility]:[place] : 1960 Planned Disposition: Anticipated Discharge Date: Discharge Date: Expected LOS: Initial Reviewer: [email or web address] Initial Review Date: 02/17/2019 Generated: 02/17/19 1:42 pm Comments DCP- Discharge Planning Updated by [id number]: Gertrudis Whitehead on 02/17/19 11:[address] Patient Name: TITO MYLES Admission Status: Elective Accout number: [id number] Admission Date: 02-13-2019 : 1960 Admission Diagnosis:INFECT/INFLM REACTION DUE TO INTERNAL RIGHT HIP PROSTH, Attending: WILBER CLEARY Current LOS: 4 Anticipated DC Date: Planned Disposition: Primary Insurance: [place]ID [place] Discharge Planning Comments: CM MET WITH PATIENT ABOUT DC PLANNING/NEEDS. STATES PLANS TO DC TO HOME AND RESUME [facility]. NOW HAS WOUND VAC, UNSURE IF SHE WILL HAVE IT AT TIME OF DC. CM WILL FOLLOW AND ASSIST. Plan Rep: Gertrudis Whitehead DCPIA - Discharge Planning Initial Assessment Updated by [email or web address]: Gertrudis Whitehead on 02/17/19 12:34 pm * Is the patient Alert and Oriented? Yes * PCP [facility] * [facility] * Preadmission Environment Home with Family * ADLs Independent * Equipment Cane Walker * Community resources currently utilized Home Health * Please name any agencies selected above. [facility] * Additional services required to return to the preadmission environment? No * Can the patient safely return to the preadmission environment? Yes * Has this patient been hospitalized within the prior 30 days at any hospital? No Last DP export: 02/17/19 11:35 am Patient Name: TITO MYLES Page [phone] at 1243 All edits/amendments must be made on the electronic document DICTATION DATE: 02/17/191241 STOCK ASSOCIATE: MICHELLE 02/17/19 1242 RPT#: [id number] DC DATE: STATUS: ADM IN [facility] [address] [place] [address] END OF REPORT
--- NOTE | 2019-02-17 16:08 | NUR ---
PT LYING IN BED RESP EVEN AND UNLABORED PT C/O PAIN OF 5/10, OFFERED PAIN MEDS, PT STATED SHE DOES. DEMEROL 25MG PO GIVEN AT THIS TIME. WILL CONTINUE TO MONITOR
--- NOTE | 2019-02-17 19:00 | NUR ---
BLADDER SCAN DONE MAX OF 35ML LEFT IN BLADDER.
--- NOTE | 2019-02-17 19:15 | NUR ---
RECEIVED CARE FROM DAY NURSE. LYING IN BED. NO DISTRESS NOTED. IV INFUSING PER ORDER TO PATENT LEFT AC. RIGHT ARM PICC SL. HEMOVAC AND WOUND VAC TO RIGHT HIP. HIP RED WITH SWELLING AND WEEPING. CALL LIGHT AT SIDE.
[2019-02-18] VITALS: BP 163/65
--- NOTE | 2019-02-18 03:00 | NUR ---
I have reviewed this patient and I concur with the Shift Assessment completed by the Licensed Practical Nurse today this shift.
[2019-02-18 04:00] VITALS: BP 179/77
[2019-02-18 04:52] LABS: BASOPHILS 0.3 % (0-2); EOSINOPHILS 8.8 % (0-7); HEMATOCRIT 23.1 % (36.0-48.0); HEMOGLOBIN 7.6 g/dL (12-16); IMMATURE GRANULOCYTES 1.5 % (0-5); LYMPHOCYTES 14.8 % (15-50); MCH 28.9 pg (26.0-34.0); MCHC 32.9 g/dL (31.0-37.0); MCV 87.8 fL (80.0-100.0); MEAN PLATELET VOLUME 8.7 fL (7.4-10.4); MONOCYTES 7.9 % (2-11); NEUTROPHILS 66.7 % (40-80); PLATELET COUNT 196 10x3/uL (130-400); RBC 2.63 10x6/uL (4.00-5.40); RDW 14.3 % (11.5-14.5); WBC 6.7 10x3/uL (4.8-10.8)
[2019-02-18 05:15] LABS: ALBUMIN 2.2 g/dL (3.4-5.0); ANION GAP 15.4 mmol/L (8-16); BILIRUBIN - TOTAL 0.39 mg/dL (0.2-1.3); CALCIUM 8.4 mg/dL (8.5-10.1); CARBON DIOXIDE 19.7 mmol/L (21.0-32.0); CREATININE - SERUM 3.3 mg/dL (0.6-1.3); MAGNESIUM - SERUM 1.8 mg/dL (1.8-2.4); POTASSIUM - SERUM 4.1 mmol/L (3.5-5.1); PROTEIN - SERUM 5.6 g/dL (6.4-8.2)
--- NOTE | 2019-02-18 07:30 | NUR ---
PT RESTING IN BED WITH EYES CLOSED, EASILY AROUSED TO SPEECH. ALERT AND ORIENTED, DENIES NEEDS AT THIS TIME. IV LOCATED TO LEFT AC RUNNING 1/2NS AT 50ML/HR AND PICC LINE LOCATED IN RIGHT UPPER ARM CURRENTLY SL. WILL CONT TO MONITOR.
[2019-02-18 08:05] VITALS: BP 181/70
--- NOTE | 2019-02-18 10:22 | MORECARE ---
CASE MANAGEMENT DISCHARGE SUMMARY PATIENT: TITO MYLES SHARP UNIT: [id number] ADM DATE: 02/13/19 AGE: 58 : 58 SEX: F ROOM/BED: D.2231 AUTHOR: FLORENCE GAINES PHYSICIAN: REFERRING PHYSICIAN: WILBER CLEARY DO DATE OF SERVICE: 02/18/19 Discharge Plan Patient Name: TITO MYLES Facility: [facility]:[place] : 1960 Planned Disposition: Home Hlth Svc w Plan Readm Anticipated Discharge Date: Discharge Date: Expected LOS: Initial Reviewer: [email or web address] Initial Review Date: 02/17/2019 Generated: 02/18/19 11:21 am Comments DCP- Discharge Planning Updated by [id number]: Gertrudis Whitehead on 02/17/19 11:[address] Patient Name: TITO MYLES Admission Status: Elective Accout number: [id number] Admission Date: 02-13-2019 : 1960 Admission Diagnosis:INFECT/INFLM REACTION DUE TO INTERNAL RIGHT HIP PROSTH, Attending: WILBER CLEARY Current LOS: 4 Anticipated DC Date: Planned Disposition: Primary Insurance: [place] Discharge Planning Comments: CM MET WITH PATIENT ABOUT DC PLANNING/NEEDS. STATES PLANS TO DC TO HOME AND RESUME [facility]. NOW HAS WOUND VAC, UNSURE IF SHE WILL HAVE IT AT TIME OF DC. CM WILL FOLLOW AND ASSIST. Asset Protection Professional: Gertrudis Whitehead DCPIA - Discharge Planning Initial Assessment Updated by [id number]: Gertrudis Whitehead on 02/17/19 12:34 pm * Is the patient Alert and Oriented? Yes * PCP [facility] * [facility] * Preadmission Environment Home with Family * ADLs Independent * Equipment Cane Walker * Community resources currently utilized Home Health * Please name any agencies selected above. [facility] * Additional services required to return to the preadmission environment? No * Can the patient safely return to the preadmission environment? Yes * Has this patient been hospitalized within the prior 30 days at any hospital? No Coverage Notice Reviewer: [email or web address] Jordan Reynoso Notice Issued Date-Time: 02/18/2019 10:18 Notice Type: Patient Choice Letter Notice Delivered To: Patient Relationship to Patient: Self Store Associate Name: Delivery Method: HAND - Hand Delivered Kerry Days: Prior Verbal Notification: Recipient Understood Notice: Yes Recipient Signature: Yes Med Rec Note Co-signed by Attending: Coverage Notice Comment: [facility] for [facility] and [facility] Last DP export: 02/17/19 11:43 am Patient Name: TITO MYLES Page [id number] at 1022 All edits/amendments must be made on the electronic document DICTATION DATE: 02/18/19 1021 ICE CARVER: MICHELLE 02/18/19 1021 RPT#: [id number] DC DATE: STATUS: ADM IN [facility] [address] [place] [address] END OF REPORT
--- NOTE | 2019-02-18 10:28 | MORECARE ---
CASE MANAGEMENT DISCHARGE SUMMARY PATIENT: TITO MYLES SHARP UNIT: [id number] ADM DATE: 02/13/19 AGE: 58 : 58 SEX: F ROOM/BED: D.2231 AUTHOR: EDER,DOC PHYSICIAN: REFERRING PHYSICIAN: WILBER CLEARY DO DATE OF SERVICE: 02/18/19 Discharge Plan Patient Name: TITO MYLES Facility: [facility]:[place] : 1960 Planned Disposition: Home Hlth Svc w Plan Readm Anticipated Discharge Date: Discharge Date: Expected LOS: Initial Reviewer: [id number] Initial Review Date: 02/17/2019 Generated: 02/18/19 11:28 am Comments DCP- Discharge Planning Updated by [email or web address]: Cortney Doranteskennedi on 02/18/19 9:[address] Met with patient to discuss discharge planning/needs, She will resume [facility] on discharge. She states either herself or her fianc? (works from midnight til 1400) will be able to deliver home antibiotics. I will need to know the antibiotic she is going home with along with the stop date to order from [employer] CM will continue to follow and assist with discharge planning/needs. DCP- Discharge Planning Updated by [id number]: Gertrudis Whitehead on 02/17/19 11:[address] Patient Name: TITO MYLES Admission Status: Elective Accout number: [id number] Admission Date: 02-13-2019 : 1960 Admission Diagnosis:INFECT/INFLM REACTION DUE TO INTERNAL RIGHT HIP PROSTH, Attending: WILBER CLEARY Current LOS: 4 Anticipated DC Date: Planned Disposition: Primary Insurance: MEDICAID [place] Discharge Planning Comments: CM MET WITH PATIENT ABOUT DC PLANNING/NEEDS. STATES PLANS TO DC TO HOME AND [facility]. NOW HAS WOUND VAC, UNSURE IF SHE WILL HAVE IT AT TIME OF DC. CM WILL FOLLOW AND ASSIST. Director Clinical Applications: Gertrudis Whitehead DCPIA - Discharge Planning Initial Assessment Updated by [email or web address]: Gertrudis Whitehead on 02/17/19 12:34 pm * Is the patient Alert and Oriented? Yes * PCP [facility] * [facility] * Preadmission Environment Home with Family * ADLs Independent * Equipment Cane Walker * Community resources currently utilized Home Health * Please name any agencies selected above. [facility] * Additional services required to return to the preadmission environment? No * Can the patient safely return to the preadmission environment? Yes * Has this patient been hospitalized within the prior 30 days at any hospital? No Coverage Notice Reviewer: [id number] Jordan Reynoso Notice Issued Date-Time: 02/18/2019 10:18 Notice Type: Patient Choice Letter Notice Delivered To: Patient Relationship to Patient: Self Agricultural Inspector Name: Delivery Method: HAND - Hand Delivered Kerry Days: Prior Verbal Notification: Recipient Understood Notice: Yes Recipient Signature: Yes Med Rec Note Co-signed by Attending: Coverage Notice Comment: [facility] for [facility] and [place] Last DP export: 02/18/19 9:22 am Patient Name: TITO MYLES Page [id number] at 1028 All edits/amendments must be made on the electronic document DICTATION DATE: 02/18/19 1028 BLEACHING SUPERVISOR: MICHELLE 02/18/19 1028 RPT#: [id number] DC DATE: STATUS: ADM IN [facility] [address] [place] [address] END OF REPORT
[2019-02-18 11:03] VITALS: Ht 151.1 cm; Wt 90.7 kg
--- NOTE | 2019-02-18 12:09 | NUR ---
PT STATES SHE HAS NO APPETITE AND HAS REFUSED HER LUNCH TRAY.
--- NOTE | 2019-02-18 12:30 | NUR ---
PTS LAST BP WAS 170/87, HAS RAN HIGH ALL DAY, NOTIFIED WHILE HE WAS ON THE FLOOR ROUNDING.
[2019-02-18 12:42] VITALS: BP 170/87
[2019-02-18 14:08] LABS: FUNGUS STAIN Final report (())
[2019-02-18 17:16] VITALS: BP 181/71
[2019-02-18 18:54] LABS: APPEARANCE CLEAR (CLEAR); BILIRUBIN NEGATIVE (NEGATIVE); COLOR YELLOW (YELLOW); GLUCOSE NEGATIVE (NEGATIVE); KETONE NEGATIVE (NEGATIVE); NITRITE NEGATIVE (NEGATIVE); PROTEIN NEGATIVE (NEGATIVE); SPECIFIC GRAVITY 1.015 (1.005-1.020); UROBILINOGEN NORMAL (NORMAL)
--- NOTE | 2019-02-18 19:20 | NUR ---
A&O X 4. PT IS COOL AND CLAMMY. VS STABLE. HEMOVAC AND PREVENA WOUND VAC PRESENT TO RIGHT HIP. PT REPORTS MILD NAUSEA THAT IS BEING DECENTLY CONTROLLED BY ZOFRAN DRIP. PT DENIES PAIN AT THIS TIME, WILL CONTINUE TO MONITOR.
[2019-02-18 19:48] VITALS: BP 191/76
[2019-02-19 00:59] VITALS: BP 163/60
--- NOTE | 2019-02-19 01:49 | NUR ---
I have reviewed this patient and I concur with the Shift Assessment completed by the Licensed Practical Nurse today this shift.
[2019-02-19 05:08] VITALS: BP 173/64
[2019-02-19 06:08] LABS: BASOPHILS 0.3 % (0-2); EOSINOPHILS 8.2 % (0-7); HEMATOCRIT 26.4 % (36.0-48.0); HEMOGLOBIN 8.8 g/dL (12-16); IMMATURE GRANULOCYTES 0.9 % (0-5); LYMPHOCYTES 12.5 % (15-50); MCH 28.7 pg (26.0-34.0); MCHC 33.3 g/dL (31.0-37.0); MEAN PLATELET VOLUME 8.9 fL (7.4-10.4); NEUTROPHILS 70.1 % (40-80); PLATELET COUNT 186 10x3/uL (130-400); RBC 3.07 10x6/uL (4.00-5.40); RDW 14.6 % (11.5-14.5); WBC 7.7 10x3/uL (4.8-10.8)
[2019-02-19 06:38] LABS: ALBUMIN 2.3 g/dL (3.4-5.0); ANION GAP 16.2 mmol/L (8-16); BILIRUBIN - TOTAL 0.52 mg/dL (0.2-1.3); CALCIUM 8.4 mg/dL (8.5-10.1); CARBON DIOXIDE 19.8 mmol/L (21.0-32.0); CREATININE - SERUM 3.3 mg/dL (0.6-1.3); MAGNESIUM - SERUM 1.7 mg/dL (1.8-2.4); PROTEIN - SERUM 5.3 g/dL (6.4-8.2)
--- NOTE | 2019-02-19 07:20 | NUR ---
PT RESTING IN BED WITH EYES CLOSED, EASILY AROUSED TO SPEECH. ALERT AND ORIENTED. BREATHING EVEN AND NONLABORED, NO S/S OF DISTRESS. IV LOCATED TO LEFT AC RUNNING 1/2NS @ 50ML/HR, ZOPHRAN @ 4.7, PICC LOCATED TO RIGHT UPPER ARM CURRENTLY SL. WOUND VAC AND HEMOVAC BOTH LOCATED TO RIGHT HIP. DENIES NEEDS AT THIS TIME, WILL CONT TO MONITOR.
[2019-02-19 08:04] VITALS: BP 165/64
--- NOTE | 2019-02-19 10:18 | MORECARE ---
CASE MANAGEMENT DISCHARGE SUMMARY PATIENT: TITO MYLES SHARP UNIT: [id number] ADM DATE: 02/13/19 AGE: 58 : 58 SEX: F ROOM/BED: D.2231 AUTHOR: EDER,DOC PHYSICIAN: REFERRING PHYSICIAN: WILBER CLEARY DO DATE OF SERVICE: 02/19/19 Discharge Plan Patient Name: TITO MYLES Facility: [facility]:[place] : 1960 Planned Disposition: Home Hlth Svc w Plan Readm Anticipated Discharge Date: Discharge Date: Expected LOS: Initial Reviewer: [email or web address] Initial Review Date: 02/17/2019 Generated: 02/19/19 11:18 am DCP- Discharge Planning Updated by [email or web address]: Cortney Reynoso on 02/18/19 9:[address] Met with patient to discuss discharge planning/needs, She will resume [facility] on discharge. She states either herself or her fianc? (works from midnight til 1400) will be able to deliver home antibiotics. I will need to know the antibiotic she is going home with along with the stop date to order from [employer]. CM will continue to follow and assist with discharge planning/needs. DCP- Discharge Planning Updated by [email or web address]: Gertrudis Whitehead on 02/17/19 11:[address] Patient Name: TITO MYLES Admission Status: Elective Accout number: [id number] Admission Date: 02-13-2019 : 1960 Admission Diagnosis:INFECT/INFLM REACTION DUE TO INTERNAL RIGHT HIP PROSTH, Attending: WILBER CLEARY Current LOS: 4 Anticipated DC Date: Planned Disposition: Primary Insurance: MEDICAID [place] Discharge Planning Comments: CM MET WITH PATIENT ABOUT DC PLANNING/NEEDS. STATES PLANS TO DC TO HOME AND [facility]. NOW HAS WOUND VAC, UNSURE IF SHE WILL HAVE IT AT TIME OF DC. CM WILL FOLLOW AND ASSIST. Heavy Equipment Mechanic: Gertrudis Whitehead DCPIA - Discharge Planning Initial Assessment Updated by [email or web address]: Gertrudis Whitehead on 02/17/19 12:34 pm * Is the patient Alert and Oriented? Yes * PCP [facility] * [facility] * Preadmission Environment Home with Family * ADLs Independent * Equipment Cane Walker * Community resources currently utilized Home Health * Please name any agencies selected above. [facility] * Additional services required to return to the preadmission environment? No * Can the patient safely return to the preadmission environment? Yes * Has this patient been hospitalized within the prior 30 days at any hospital? No External Providers External Provider: [facility] Next Contact Date: Service Request Date: Service Type: Resolution: Reviewer: Comments: Coverage Notice Reviewer: [id number] Jordan Mcgregory Edgardo Notice Issued Date-Time: 02/18/2019 10:18 Notice Type: Patient Choice Letter Notice Delivered To: Patient Relationship to Patient: Self Wood Scaler Name: Delivery Method: HAND - Hand Delivered Kerry Days: Prior Verbal Notification: Recipient Understood Notice: Yes Recipient Signature: Yes Med Rec Note Co-signed by Attending: Coverage Notice Comment: [facility] for [facility] and [place] Last DP export: 02/18/19 9:28 am Patient Name: TITO MYLES Page 12650 at 1018 All edits/amendments must be made on the electronic document DICTATION DATE: 02/19/19 1018 WINDING OPERATOR: MICHELLE 02/19/19 1018 RPT#: [id number] DC DATE: STATUS: ADM IN [facility] [address] [place] [address] END OF REPORT
--- NOTE | 2019-02-19 11:13 | MORECARE ---
CASE MANAGEMENT DISCHARGE SUMMARY PATIENT: TITO MYLES SHARP UNIT: [id number] ADM DATE: 02/13/19 AGE: 58 : 58 SEX: F ROOM/BED: D.2231 AUTHOR: EDER,DOC PHYSICIAN: REFERRING PHYSICIAN: WILBER CLEARY DO DATE OF SERVICE: 02/19/19 Discharge Plan Patient Name: TITO MYLES Facility: [facility]:[place] : 1960 Planned Disposition: Home Hlth Svc w Plan Readm Anticipated Discharge Date: Discharge Date: Expected LOS: Initial Reviewer: [email or web address] Initial Review Date: 02/17/2019 Generated: 02/19/19 12:13 pm DCP- Discharge Planning Updated by [email or web address]: Cortney Reynoso on 02/18/19 9:[address] Met with patient to discuss discharge planning/needs, She will resume [facility] on discharge. She states either herself or her fianc? (works from midnight til 1400) will be able to deliver home antibiotics. I will need to know the antibiotic she is going home with along with the stop date to order from [employer]. CM will continue to follow and assist with discharge planning/needs. DCP- Discharge Planning Updated by [email or web address]: Gertrudis Whitehead on 02/17/19 11:[address] Patient Name: TITO MYLES Admission Status: Elective Accout number: [id number] Admission Date: 02-13-2019 : 1960 Admission Diagnosis:INFECT/INFLM REACTION DUE TO INTERNAL RIGHT HIP PROSTH, Attending: WILBER CLEARY Current LOS: 4 Anticipated DC Date: Planned Disposition: Primary Insurance: MEDICAID [place] Discharge Planning Comments: CM MET WITH PATIENT ABOUT DC PLANNING/NEEDS. STATES PLANS TO DC TO HOME AND [facility]. NOW HAS WOUND VAC, UNSURE IF SHE WILL HAVE IT AT TIME OF DC. CM WILL FOLLOW AND ASSIST. Case Packer: Gertrudis Whitehead DCPIA - Discharge Planning Initial Assessment Updated by [email or web address]: Gertrudis Whitehead on 02/17/19 12:34 pm * Is the patient Alert and Oriented? Yes * PCP [facility]AB * [facility] * Preadmission Environment Home with Family * ADLs Independent * Equipment Cane Walker * Community resources currently utilized Home Health * Please name any agencies selected above. [facility] * Additional services required to return to the preadmission environment? No * Can the patient safely return to the preadmission environment? Yes * Has this patient been hospitalized within the prior 30 days at any hospital? No External Providers External Provider: [facility] Next Contact Date: Service Request Date: Service Type: Resolution: Reviewer: Comments: Coverage Notice Reviewer: [email or web address] Jordan Reynoso Notice Issued Date-Time: 02/18/2019 10:18 Notice Type: Patient Choice Letter Notice Delivered To: Patient Relationship to Patient: Self Seam Hammerer Name: Delivery Method: HAND - Hand Delivered Kerry Days: Prior Verbal Notification: Recipient Understood Notice: Yes Recipient Signature: Yes Med Rec Note Co-signed by Attending: Coverage Notice Comment: [facility] for [facility] and [place] Last DP export: 02/19/19 9:18 am Patient Name: TITO MYLES Page 50091 at 1113 All edits/amendments must be made on the electronic document DICTATION DATE: 02/19/19 1113 CABLE FERRYBOAT OPERATOR: MICHELLE 02/19/19 1113 RPT#: [id number] DC DATE: STATUS: ADM IN [facility] [address] [place] [address] END OF REPORT
--- NOTE | 2019-02-19 11:21 | MORECARE ---
CASE MANAGEMENT DISCHARGE SUMMARY PATIENT: TITO MYLES SHARP UNIT: [id number] ADM DATE: 02/13/19 AGE: 58 : 58 SEX: F ROOM/BED: D.2231 AUTHOR: EDER,[place] PHYSICIAN: REFERRING PHYSICIAN: WILBER CLEAYR DO DATE OF SERVICE: 02/19/19 Discharge Plan Patient Name: TITO MYLES Facility: [facility]:[place] : 1960 Planned Disposition: Home Hlth Svc w Plan Readm Anticipated Discharge Date: Discharge Date: Expected LOS: Initial Reviewer: [email or web address] Initial Review Date: 02/17/2019 Generated: 02/19/19 12:21 pm Comments DCP- Discharge Planning Updated by [email or web address]: Cortney Reynoso on 02/19/19 10:[address] I have faxed Dr. Cleary's antibiotic orders and clinical to [facility] and [facility]. I spoke with Dorian with [facility] and Sierra with [facility] and [facility] is accepting. CM will continue to follow and assist with discharge planning/needs. DCP- Discharge Planning Updated by [email or web address]: Cortney Reynoso on 02/18/19 9:[address] Met with patient to discuss discharge planning/needs, She will resume [facility] on discharge. She states either herself or her fianc? (works from midnight til 1400) will be able to deliver home antibiotics. I will need to know the antibiotic she is going home with along with the stop date to order from [employer]. CM will continue to follow and assist with discharge planning/needs. DCP- Discharge Planning Updated by [email or web address]: Gertrudis Whitehead on 02/17/19 11:[address] Patient Name: TITO MYLES Admission Status: Elective Accout number: [id number] Admission Date: 02-13-2019 : 1960 Admission Diagnosis:INFECT/INFLM REACTION DUE TO INTERNAL RIGHT HIP PROSTH, Attending: WILBER CLEARY Current LOS: 4 Anticipated DC Date: Planned Disposition: Primary Insurance: MEDICAID [place] Discharge Planning Comments: CM MET WITH PATIENT ABOUT DC PLANNING/NEEDS. STATES PLANS TO DC TO HOME AND RESU[facility]. NOW HAS WOUND VAC, UNSURE IF SHE WILL HAVE IT AT TIME OF DC. CM WILL FOLLOW AND ASSIST. Dairy Feed Worker: Gertrudis Charley DCPIA - Discharge Planning Initial Assessment Updated by [email or web address]: Gertrudis Whitehead on 02/17/19 12:34 pm * Is the patient Alert and Oriented? Yes * PCP [facility]AB * [facility] * Preadmission Environment Home with Family * ADLs Independent * Equipment Cane Walker * Community resources currently utilized Home Health * Please name any agencies selected above. [facility] * Additional services required to return to the preadmission environment? No * Can the patient safely return to the preadmission environment? Yes * Has this patient been hospitalized within the prior 30 days at any hospital? No Coverage Notice Reviewer: [id number] Jordan Reynoso Notice Issued Date-Time: 02/18/2019 10:18 Notice Type: Patient Choice Letter Notice Delivered To: Patient Relationship to Patient: Self Security Compliance Engineer Name: Delivery Method: HAND - Hand Delivered Kerry Days: Prior Verbal Notification: Recipient Understood Notice: Yes Recipient Signature: Yes Med Rec Note Co-signed by Attending: Coverage Notice Comment: [facility] for [facility] and [facility] Last DP export: 02/19/19 10:13 am Patient Name: TITO MYLES Page 00503 at 1121 All edits/amendments must be made on the electronic document DICTATION DATE: 02/19/19 112 HEAD MEN'S TENNIS COACH: MICHELLE 02/19/19 1121 RPT#: [id number] DC DATE: STATUS: ADM IN [facility] [address] [place] [address] END OF REPORT
[2019-02-19 11:30] LABS: ERYTHROCYTE SEDIMENTATION RATE 45 mm/hr (0-30)
[2019-02-19 12:36] VITALS: BP 167/57
--- NOTE | 2019-02-19 15:33 | MORECARE ---
CASE MANAGEMENT DISCHARGE SUMMARY PATIENT: TITO MYLES SHARP UNIT: [id number] ADM DATE: 02/13/19 AGE: 58 : 58 SEX: F ROOM/BED: D.2231 AUTHOR: EDER,DOC PHYSICIAN: REFERRING PHYSICIAN: WILBER CLEARY DO DATE OF SERVICE: 02/19/19 Discharge Plan Patient Name: TITO MYLES Facility: [facility]:[place] : 1960 Planned Disposition: Home Hlth Svc w Plan Readm Anticipated Discharge Date: Discharge Date: Expected LOS: Initial Reviewer: [email or web address] Initial Review Date: 02/17/2019 Generated: 02/19/19 4:33 pm Comments DCP- Discharge Planning Updated by [email or web address]: Cortney Reynoso on 02/19/19 2:[address] Received a call from Emerita with [facility] pharmacy that Medicaid will cover all of the infusion costs. CM to call when patient is discharged for them to mix the medication and do first infusion teaching. CM will continue to follow and assist with discharge planning/needs. DCP- Discharge Planning Updated by [email or web address]: Cortney Reynoso on 02/19/19 10:[address] I have faxed Dr. Cleary's antibiotic orders and clinical to [facility] and [email or web address]. I spoke with Dorian with [facility] and Sierra with [email or web address] and [email or web address] is accepting. CM will continue to follow and assist with discharge planning/needs. DCP- Discharge Planning Updated by [id number]: Cortney Reynoso on 02/18/19 9:[address] Met with patient to discuss discharge planning/needs, She will resume [email or web address] on discharge. She states either herself or her fianc? (works from midnight til 1400) will be able to deliver home antibiotics. I will need to know the antibiotic she is going home with along with the stop date to order from [facility]. CM will continue to follow and assist with discharge planning/needs. DCP- Discharge Planning Updated by [email or web address]: Gertrudis Whitehead on 02/17/19 11:[address] Patient Name: TITO MYLES Admission Status: Elective Accout number: [id number] Admission Date: 02-13-2019 : 1960 Admission Diagnosis:INFECT/INFLM REACTION DUE TO INTERNAL RIGHT HIP PROSTH, Attending: WILBER CLEARY Current LOS: 4 Anticipated DC Date: Planned Disposition: Primary Insurance: MEDICAID [place] Discharge Planning Comments: CM MET WITH PATIENT ABOUT DC PLANNING/NEEDS. STATES PLANS TO DC TO HOME AND RESU[facility]. NOW HAS WOUND VAC, UNSURE IF SHE WILL HAVE IT AT TIME OF DC. CM WILL FOLLOW AND ASSIST. Pavilion Cutter: Gertrudis Whitehead DCPIA - Discharge Planning Initial Assessment Updated by [email or web address]: Gertrudis Whitehead on 02/17/19 12:34 pm * Is the patient Alert and Oriented? Yes * PCP [facility]AB * [facility] * Preadmission Environment Home with Family * ADLs Independent * Equipment Cane Walker * Community resources currently utilized Home Health * Please name any agencies selected above. [facility] * Additional services required to return to the preadmission environment? No * Can the patient safely return to the preadmission environment? Yes * Has this patient been hospitalized within the prior 30 days at any hospital? No Coverage Notice Reviewer: [email or web address] Jordan Reynoso Notice Issued Date-Time: 02/18/2019 10:18 Notice Type: Patient Choice Letter Notice Delivered To: Patient Relationship to Patient: Self Plate Molder Name: Delivery Method: HAND - Hand Delivered Kerry Days: Prior Verbal Notification: Recipient Understood Notice: Yes Recipient Signature: Yes Med Rec Note Co-signed by Attending: Coverage Notice Comment: [facility] for [facility] and [place] Last DP export: 02/19/19 10:21 am Patient Name: TITO MYLES Page [phone] at 1533 All edits/amendments must be made on the electronic document DICTATION DATE: 02/19/19 1533 LUMBER KILN OPERATOR: MICHELLE 02/19/19 1533 RPT#: [id number] DC DATE: STATUS: ADM IN [facility] [address] [place] [address] END OF REPORT
[2019-02-19 16:25] VITALS: BP 131/62
--- NOTE | 2019-02-19 18:50 | NUR ---
PT CUT OFF MACHINE UNLOADER LIGHT, REPORTS CHEST FEELING HEAVY AND PAIN WHEN BREATHING HEAVY. KRIS HERRING IS ON FLOOR AND NOTIFIED IMMEDIATELY, HE ORDERED EKG AND CARDIAC LABS. EKG NORMAL, TOLD ME TO MAKE SURE VITALS WERE GOOD AND GIVE NITRO. PT STATES THIS HAS HAPPENED AT HOME MULTIPLE TIMES AND SHE ALWAYS TAKES A NITRO AND IT GOES AWAY. REPORT PASSED ON TO GUNNER'S MATE G NURSE ISAIAH.
[2019-02-19 20:00] VITALS: BP 197/80
[2019-02-19 20:26] LABS: CKMB 0.9 U/L (0.0-3.6); CREATINE KINASE 51 UL (21-215)
[2019-02-19 20:30] LABS: TROPONIN-I < 0.017 ng/mL (0.000-0.060)
--- NOTE | 2019-02-19 23:53 | NUR ---
C/O PRESSER TO CHEST BLASTING ENTRYMAN ON FLOOR NEW ORDERS FOR LABS EKG AND NITROSTAT GIVE X1 PT STATED SHE WAS NOT HAVING ANY MORE PAIN. RESTING WITH WATER AND CALL LIGHT IN REACH NO S/S OF DISTRESS NOTED OR STATED. SHE IS ALERT AND ORENTED ABLE TO VOICE NEEDS AND WANTS TO STAFF. BED LOW CHECKED OFTEN FOR NEEDS AND SAFETY.
[2019-02-20 00:41] VITALS: BP 167/59
[2019-02-20 02:53] LABS: CKMB 0.5 U/L (0.0-3.6); CREATINE KINASE 45 UL (21-215); TROPONIN-I < 0.017 ng/mL (0.000-0.060)
[2019-02-20 04:35] VITALS: BP 175/67
[2019-02-20 07:06] LABS: BASOPHILS 0.1 % (0-2); EOSINOPHILS 6.1 % (0-7); HEMATOCRIT 27.6 % (36.0-48.0); HEMOGLOBIN 9.4 g/dL (12-16); IMMATURE GRANULOCYTES 0.7 % (0-5); LYMPHOCYTES 11.6 % (15-50); MCH 28.7 pg (26.0-34.0); MCHC 34.1 g/dL (31.0-37.0); MCV 84.4 fL (80.0-100.0); MEAN PLATELET VOLUME 8.7 fL (7.4-10.4); MONOCYTES 5.8 % (2-11); NEUTROPHILS 75.7 % (40-80); PLATELET COUNT 203 10x3/uL (130-400); RBC 3.27 10x6/uL (4.00-5.40); RDW 13.9 % (11.5-14.5); WBC 8.5 10x3/uL (4.8-10.8)
--- NOTE | 2019-02-20 07:06 | NUR ---
PT IS RESTING IN BED WITH EYES CLOSED. RESPIRATIONS ARE EVEN AND UNLABORED. PT IS EASILY AROUSED WITH VERBAL STIMULATION. PT REPORTS PRESENCE OF NAUSEA AT THIS TIME. ZOFRAN IS INFUSING WITHOUT DIFFICULTY. PT REQUESTS FOR BREAKFAST TRAY TO NOT ENTER ROOM BECAUSE "THE SMELL IS GOING TO MAKE ME THROW UP". WOUND VAC NOTED TO RIGHT HIP. DRESSING IN PLACE. DRESSING TO RIGHT HIP NOTED AND IS C/D/I. PT WITH LEFT AC INFUSING WITHOUT DIFFICULTY. RIGHT UPPER ARM PICC LINE IS SALINE LOCK AND FLUSHES WITHOUT DIFFICULTY. PT DENIES PRESENCE OF PAIN AT THIS TIME. BED IS IN THE LOWEST POSITION. CALL LIGHT AND BEDSIDE TABLE ARE WITHIN REACH. SIDE RAILS X 2. PT DENIES FURTHER NEEDS. WILL CONT TO MONITOR.
[2019-02-20 07:35] LABS: ALBUMIN 2.5 g/dL (3.4-5.0); ALKALINE PHOSPHATASE 124 U/L (46-116); ALT (SGPT) 37 U/L (10-68); BILIRUBIN - TOTAL 0.38 mg/dL (0.2-1.3); CALC OSMOLALITY 284 mosm/kg (275-300); CALCIUM 8.5 mg/dL (8.5-10.1); CARBON DIOXIDE 19.2 mmol/L (21.0-32.0); CHLORIDE - SERUM 107 mmol/L (98-107); CKMB 0.7 U/L (0.0-3.6); CREATINE KINASE 41 UL (21-215); CREATININE - SERUM 3.2 mg/dL (0.6-1.3); GLUCOSE 94 mg/dL (74-106); MAGNESIUM - SERUM 1.8 mg/dL (1.8-2.4); PHOSPHOROUS 3.7 mg/dL (2.5-4.9); POTASSIUM - SERUM 3.6 mmol/L (3.5-5.1); PROTEIN - SERUM 6.1 g/dL (6.4-8.2); SODIUM 140 mmol/L (136-145); TROPONIN-I < 0.017 ng/mL (0.000-0.060); UREA NITROGEN 28 mg/dL (7-18); VANCOMYCIN - RANDOM 16.1 ug/mL (10.0-20.0); eGFR NON AFRICAN AMERICAN 16 mL/min (90-120)
[2019-02-20 08:28] VITALS: BP 179/66
[2019-02-20 12:37] VITALS: BP 136/61
--- NOTE | 2019-02-20 20:00 | NUR ---
EVENING ROUNDS MADE, WILL CONTINUE POC. PATIENT IS A/OX4, UP AD MOLLY. WOUND VAC TO RT HIP, INTACT. PATIENT HAS RT PICC THAT IS SL AND AN IV TO LT AC WITH FLUIDS INFUSING @20ML/HR AND ZOFRAN DRIP AT 4.7ML/HR. PATIENT DENIES NEEDS AT THIS TIME. NO S/SX OF DISTRESS. RR EVEN AND UNLABORED. CL IN REACH, BED LOCKED AND LOWERED. WILL CTM.
[2019-02-20 20:47] VITALS: BP 175/64
--- NOTE | 2019-02-21 01:11 | NUR ---
I have reviewed this patient and I concur with the Shift Assessment completed by the Licensed Practical Nurse today this shift.
[2019-02-21 04:50] LABS: BASOPHILS 0.1 % (0-2); EOSINOPHILS 6.2 % (0-7); HEMATOCRIT 25.7 % (36.0-48.0); HEMOGLOBIN 8.7 g/dL (12-16); MCH 28.4 pg (26.0-34.0); MCHC 33.9 g/dL (31.0-37.0); MEAN PLATELET VOLUME 9.1 fL (7.4-10.4); MONOCYTES 7.2 % (2-11); NEUTROPHILS 74.5 % (40-80); PLATELET COUNT 194 10x3/uL (130-400); RBC 3.06 10x6/uL (4.00-5.40); RDW 13.7 % (11.5-14.5); WBC 7.6 10x3/uL (4.8-10.8)
[2019-02-21 05:08] VITALS: BP 192/67
[2019-02-21 05:22] LABS: ALBUMIN 2.3 g/dL (3.4-5.0); ANION GAP 17.2 mmol/L (8-16); BILIRUBIN - TOTAL 0.37 mg/dL (0.2-1.3); CALCIUM 8.1 mg/dL (8.5-10.1); CREATININE - SERUM 3.1 mg/dL (0.6-1.3); MAGNESIUM - SERUM 1.5 mg/dL (1.8-2.4); POTASSIUM - SERUM 3.2 mmol/L (3.5-5.1); PROTEIN - SERUM 5.8 g/dL (6.4-8.2)
--- NOTE | 2019-02-21 05:56 | NUR ---
PATIENTS POTASSIUM AND MAGNESIUM WERE LOW THIS AM. ADMINISTERED K-DUR AND MAGOX PER PRN ORDERS. WILL CTM.
--- NOTE | 2019-02-21 07:20 | NUR ---
PT RESTING IN BED WITH EYES CLOSED, EASILY AROUSED TO SPEECH. ALERT AND ORIENTED, STATES SHE IS FEELING MUCH BETTER TODAY. REQUESTING CHICKEN NOODLE SOUP FOR BREAKFAST, DIET ORDER PUT IN. IV LOCATED TO LEFT AC AND PICC TO RIGHT UPPER ARM. NO S/S OF DISTRESS NOTED AT THIS TIME, WILL CONT TO MONITOR.
[2019-02-21] MEDS ORDERED: ELIQUIS2.5 MG PO (08:33)
[2019-02-21] MEDS ORDERED: MAXIPIME 1 GM/D51 G1 IV (08:33)
[2019-02-21] MEDS ORDERED: LEVOFLOXAC750 MG/150 IV (08:33)
[2019-02-21] MEDS ORDERED: ZOFRAN ODT4 MG/UDTAB PO (08:34)
[2019-02-21] MEDS ORDERED: PHENERGAN25 M1 PO (08:35)
[2019-02-21 08:50] VITALS: BP 189/65
--- NOTE | 2019-02-21 09:21 | MORECARE ---
CASE MANAGEMENT DISCHARGE SUMMARY PATIENT: TITO MYLES SHARP UNIT: [id number] ADM DATE: 02/13/19 AGE: 58 : 58 SEX: F ROOM/BED: D.2231 AUTHOR: EDER,DOC PHYSICIAN: REFERRING PHYSICIAN: WILBER CLEARY DO DATE OF SERVICE: 02/21/19 Discharge Plan Patient Name: TITO MYLES Facility: [facility]:[place] : 1960 Planned Disposition: Home Hlth Svc w Plan Readm Anticipated Discharge Date: Discharge Date: Expected LOS: Initial Reviewer: [email or web address] Initial Review Date: 02/17/2019 Generated: 02/21/19 10:20 am Comments DCP- Discharge Planning Updated by [id number]: Cortney Reynoso on 02/21/19 8:[address] Cleary has discharged today. He is aware of lab results this am. States her nausea is gone. I have called Josh at [facility] and they will see her for her evening dose of antibiotic. I informed her that the levaquin is due tomorrow. I spoke with oDrian at [facility] and he will give me a time that they will be here today for the first instruction. I spoke with patient and she is agreeable to discharge plan. She is ambulating in the arndt at this time. CM will continue to follow and assist with discharge planning/needs. Home today with and infusion services. DCP- Discharge Planning Updated by [email or web address]: Cortney Reynoso on 02/19/19 2:[address] Received a call from Emerita with [facility] that Medicaid will cover all of the infusion costs. CM to call when patient is discharged for them to mix the medication and do first infusion teaching. CM will continue to follow and assist with discharge planning/needs. DCP- Discharge Planning Updated by [id number]: Cortney Reynoso on 02/19/19 10:[address] I have faxed Dr. Cleary's antibiotic orders and clinical to [facility] and [facility]. I spoke with Dorian with [facility] and Sierra with [facility] and [facility] is accepting. CM will continue to follow and assist with discharge planning/needs. DCP- Discharge Planning Updated by [email or web address]: Cortney Reynoso on 02/18/19 9:[address] Met with patient to discuss discharge planning/needs, She will resume [facility] on discharge. She states either herself or her fianc? (works from midnight til 1400) will be able to deliver home antibiotics. I will need to know the antibiotic she is going home with along with the stop date to order from [facility]. CM will continue to follow and assist with discharge planning/needs. DCP- Discharge Planning Updated by [id number]: Gertrudis Whitehead on 02/17/19 11:[address] Patient Name: TITO MYLES Admission Status: Elective Accout number: [id number] Admission Date: 02-13-2019 : 1960 Admission Diagnosis:INFECT/INFLM REACTION DUE TO INTERNAL RIGHT HIP PROSTH, Attending: WILBER CLEARY Current LOS: 4 Anticipated DC Date: Planned Disposition: Primary Insurance: MEDICAID [place] Discharge Planning Comments: CM MET WITH PATIENT ABOUT DC PLANNING/NEEDS. STATES PLANS TO DC TO HOME AND [facility]. NOW HAS WOUND VAC, UNSURE IF SHE WILL HAVE IT AT TIME OF DC. CM WILL FOLLOW AND ASSIST. Air Twist Operator: Gertrudisgladis Whitehead DCPIA - Discharge Planning Initial Assessment Updated by [email or web address]: Gertrudis Charley on 02/17/19 12:34 pm * Is the patient Alert and Oriented? Yes * PCP [facility] * [facility] * Preadmission Environment Home with Family * ADLs Independent * Equipment Cane Walker * Community resources currently utilized Home Health * Please name any agencies selected above. [facility] * Additional services required to return to the preadmission environment? No * Can the patient safely return to the preadmission environment? Yes * Has this patient been hospitalized within the prior 30 days at any hospital? No Coverage Notice Reviewer: [id number] - Cortney Reynoso Notice Issued Date-Time: 02/18/2019 10:18 Notice Type: Patient Choice Letter Notice Delivered To: Patient Relationship to Patient: Self Hydraulic Corrugating Machine Operator Name: Delivery Method: HAND - Hand Delivered Kerry Days: Prior Verbal Notification: Recipient Understood Notice: Yes Recipient Signature: Yes Med Rec Note Co-signed by Attending: Coverage Notice Comment: SOTERO for [facility] and [facility] Last DP export: 02/19/19 2:33 pm Patient Name: TITO MYLES Page [id number] at 0921 All edits/amendments must be made on the electronic document DICTATION DATE: 02/21/19919 NEUROPSYCHOLOGY MEDICAL CONSULTANT: MICHELLE 02/21/19919 RPT#: [id number] DC DATE: STATUS: ADM IN [facility] [address] [place] [address] END OF REPORT
[2019-02-21 12:14] VITALS: BP 166/71
--- NOTE | 2019-02-21 14:47 | NUR ---
As per Dr. Terrell's order, removed vac dressing and applied Prevena over incision on right hip. Little to no draining noted in canister. Incision site has no redness, edema or ordor. Pt tolerated well.
--- NOTE | 2019-02-21 15:15 | MORECARE ---
CASE MANAGEMENT DISCHARGE SUMMARY PATIENT: TITO MYLES SHARP UNIT: [id number] ADM DATE: 02/13/19 AGE: 58 : 58 SEX: F ROOM/BED: D.2231 AUTHOR: EDER,DOC PHYSICIAN: REFERRING PHYSICIAN: WILBER CLEARY DO DATE OF SERVICE: 02/21/19 Discharge Plan Patient Name: TITO MYLES Facility: [facility]:[place] : 1960 Planned Disposition: Home Hlth Svc w Plan Readm Anticipated Discharge Date: Discharge Date: Expected LOS: Initial Reviewer: [email or web address] Initial Review Date: 02/17/2019 Generated: 02/21/19 4:15 pm Comments DCP- Discharge Planning Updated by [email or web address]: Cortney Reynoso on 02/21/19 2:[address] Received primary care's order and sent to [facility] for BUN/CR to be drawn every couple of days. I also informed the patient. [facility] has already come and gone and taught patient on IV infusion. Patient states she feels comfortable with the IV. 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 Home today with home health and IV infusions. DCP- Discharge Planning Updated by [id number]: Cortney Reynoso on 02/21/19 8:[address] Cleary has discharged today. He is aware of lab results this am. States her nausea is gone. I have called Yumikostefani at [facility] and they will see her for her evening dose of antibiotic. I informed her that the levaquin is due tomorrow. I spoke with Dorian at [facility] and he will give me a time that they will be here today for the first instruction. I spoke with patient and she is agreeable to discharge plan. She is ambulating in the arndt at this time. CM will continue to follow and assist with discharge planning/needs. Home today with and infusion services. DCP- Discharge Planning Updated by [id number]: Cortney Reynoso on 02/19/19 2:[address] Received a call from Emerita with [facility] pharmacy that Medicaid will cover all of the infusion costs. CM to call when patient is discharged for them to mix the medication and do first infusion teaching. CM will continue to follow and assist with discharge planning/needs. DCP- Discharge Planning Updated by [email or web address]: Cortney Reynoso on 02/19/19 10:[address] I have faxed Dr. Cleary's antibiotic orders and clinical to [facility] and [facility]. I spoke with Dorian with [facility] and Sierra with [facility] and [facility]. CM will continue to follow and assist with discharge planning/needs. DCP- Discharge Planning Updated by [email or web address]: Cortney Reynoso on 02/18/19 9:[address] Met with patient to discuss discharge planning/needs, She will resume [facility] on discharge. She states either herself or her fianc? (works from midnight til 1400) will be able to deliver home antibiotics. I will need to know the antibiotic she is going home with along with the stop date to order from [facility]. CM will continue to follow and assist with discharge planning/needs. DCP- Discharge Planning Updated by [id number]: Gertrudis Whitehead on 02/17/19 11:[address] Patient Name: TITO MYLES Admission Status: Elective Accout number: [id number] Admission Date: 02-13-2019 : 1960 Admission Diagnosis:INFECT/INFLM REACTION DUE TO INTERNAL RIGHT HIP PROSTH, Attending: WILBER CLEARY Current LOS: 4 Anticipated DC Date: Planned Disposition: Primary Insurance: MEDICAID [place] Discharge Planning Comments: CM MET WITH PATIENT ABOUT DC PLANNING/NEEDS. STATES PLANS TO DC TO HOME AND [facility]. NOW HAS WOUND VAC, UNSURE IF SHE WILL HAVE IT AT TIME OF DC. CM WILL FOLLOW AND ASSIST. Glue Bone Crusher: Gertrudis Whitehead DCPIA - Discharge Planning Initial Assessment Updated by [id number]: Gertrudis Whitehead on 02/17/19 12:34 pm * Is the patient Alert and Oriented? Yes * PCP [facility] * [facility] * Preadmission Environment Home with Family * ADLs Independent * Equipment Cane Walker * Community resources currently utilized Home Health * Please name any agencies selected above. [facility] * Additional services required to return to the preadmission environment? No * Can the patient safely return to the preadmission environment? Yes * Has this patient been hospitalized within the prior 30 days at any hospital? No Coverage Notice Reviewer: [id number] - Cortney Reynoso Notice Issued Date-Time: 02/18/2019 10:18 Notice Type: Patient Choice Letter Notice Delivered To: Patient Relationship to Patient: Self Program Aide Name: Delivery Method: HAND - Hand Delivered Kerry Days: Prior Verbal Notification: Recipient Understood Notice: Yes Recipient Signature: Yes Med Rec Note Co-signed by Attending: Coverage Notice Comment: [facility] for [facility] and [facility] Last DP export: 02/21/19 8:21 am Patient Name: TITO MYLES Page [id number] at 1515 All edits/amendments must be made on the electronic document DICTATION DATE: 02/21/19 1515 BUCKLE ASSEMBLER: MICHELLE 02/21/19 1515 RPT#: [id number] DC DATE: STATUS: ADM IN [facility] [address] [place] [address] END OF REPORT
[2019-02-21 15:53] VITALS: BP 180/79
--- NOTE | 2019-02-21 16:26 | NUR ---
PT DC`D HOME TO VIA WHEELCHAIR.
--- NOTE | 2019-02-21 16:41 | MORECARE ---
CASE MANAGEMENT DISCHARGE SUMMARY PATIENT: TITO MYLES SHARP UNIT: [id number] ADM DATE: 02/13/19 AGE: 58 : 58 SEX: F ROOM/BED: D.2231 AUTHOR: EDER,DOC PHYSICIAN: REFERRING PHYSICIAN: WILBER CLEARY DO DATE OF SERVICE: 02/21/19 Discharge Plan Patient Name: TITO MYLES Facility: [facility]:[place] : 1960 Planned Disposition: Home Hlth Svc w Plan Readm Anticipated Discharge Date: Discharge Date: 02/21/2019 Expected LOS: Initial Reviewer: [email or web address] Initial Review Date: 02/17/2019 Generated: 02/21/19 5:41 pm Comments DCP- Discharge Planning Updated by [email or web address]: Marietta Mckeon on 02/21/19 3:[address] Zoraida with [email or web address] called and stated that she has taught the patient and meds have been delivered she stated that she did that around 1400 DCP- Discharge Planning Updated by [id number]: Cortney Edgardo on 02/21/19 2:[address] Received primary care's order and sent to [facility] for BUN/CR to be drawn every couple of days. I also informed the patient. [email or web address] has already come and gone and taught patient on IV infusion. Patient states she feels comfortable with the IV. 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 Home today with home health and IV infusions. DCP- Discharge Planning Updated by [id number]: Cortney Reynoso on 02/21/19 8:[address] Cleary has discharged today. He is aware of lab results this am. States her nausea is gone. I have called Chinalen at [facility] and they will see her for her evening dose of antibiotic. I informed her that the levaquin is due tomorrow. I spoke with Dorian at [email or web address] and he will give me a time that they will be here today for the first instruction. I spoke with patient and she is agreeable to discharge plan. She is ambulating in the arndt at this time. CM will continue to follow and assist with discharge planning/needs. Home today with HH and infusion services. DCP- Discharge Planning Updated by [email or web address]: Cortney Reynoso on 02/19/19 2:[address] Received a call from Emerita with [email or web address] pharmacy that Medicaid will cover all of the infusion costs. CM to call when patient is discharged for them to mix the medication and do first infusion teaching. CM will continue to follow and assist with discharge planning/needs. DCP- Discharge Planning Updated by [id number]: Cortney Edgardo on 02/19/19 10:[address] I have faxed Dr. Cleary's antibiotic orders and clinical to [email or web address] and [facility]. I spoke with Dorian with [facility] and Sierra with [facility] and [facility]. CM will continue to follow and assist with discharge planning/needs. DCP- Discharge Planning Updated by [id number]: Cortney Reynoso on 02/18/19 9:[address] Met with patient to discuss discharge planning/needs, She will [facility] on discharge. She states either herself or her fianc? (works from midnight til 1400) will be able to deliver home antibiotics. I will need to know the antibiotic she is going home with along with the stop date to order from [facility]. CM will continue to follow and assist with discharge planning/needs. DCP- Discharge Planning Updated by [email or web address]: Gertrudis Whitehead on 02/17/19 11:[address] Patient Name: TITO MYLES Admission Status: Elective Accout number: [id number] Admission Date: 02-13-2019 : 1960 Admission Diagnosis:INFECT/INFLM REACTION DUE TO INTERNAL RIGHT HIP PROSTH, Attending: WILBER CLEARY Current LOS: 4 Anticipated DC Date: Planned Disposition: Primary Insurance: MEDICAID [place] Discharge Planning Comments: CM MET WITH PATIENT ABOUT DC PLANNING/NEEDS. STATES PLANS TO DC TO HOME AND [facility]. NOW HAS WOUND VAC, UNSURE IF SHE WILL HAVE IT AT TIME OF DC. CM WILL FOLLOW AND ASSIST. Farmworker Poultry: Gertrudis Whitehead DCPIA - Discharge Planning Initial Assessment Updated by [id number]: Gertrudis Whitehead on 02/17/19 12:34 pm * Is the patient Alert and Oriented? Yes * PCP [facility] * [facility] * Preadmission Environment Home with Family * ADLs Independent * Equipment Cane Walker * Community resources currently utilized Home Health * Please name any agencies selected above. [facility] * Additional services required to return to the preadmission environment? No * Can the patient safely return to the preadmission environment? Yes * Has this patient been hospitalized within the prior 30 days at any hospital? No Coverage Notice Reviewer: [email or web address] Jordan Reynoso Notice Issued Date-Time: 02/18/2019 10:18 Notice Type: Patient Choice Letter Notice Delivered To: Patient Relationship to Patient: Self Manager Lpn Name: Delivery Method: HAND - Hand Delivered Kerry Days: Prior Verbal Notification: Recipient Understood Notice: Yes Recipient Signature: Yes Med Rec Note Co-signed by Attending: Coverage Notice Comment: [facility] for [facility] and [facility] Last DP export: 02/21/19 2:15 pm Patient Name: TITO MYLES Page [id number] at 1641 All edits/amendments must be made on the electronic document DICTATION DATE: 02/21/19 1640 HOP SEPARATOR: MICHELLE 02/21/19 1640 RPT#: [id number] DC DATE:02/21/19 STATUS: DIS IN [facility] [address] [place] [address] END OF REPORT
--- NOTE | 2019-02-25 12:38 | MORECARE ---
CASE MANAGEMENT DISCHARGE SUMMARY PATIENT: TITO MYLES SHARP UNIT: [id number] ADM DATE: 02/13/19 AGE: 58 : 58 SEX: F ROOM/BED: D.2231 AUTHOR: EDER,DOC PHYSICIAN: REFERRING PHYSICIAN: WILBER CLEARY DO DATE OF SERVICE: 02/25/19 Discharge Plan Patient Name: TITO MYLES Facility: [facility]:[place] : 1960 Planned Disposition: Home Hlth Svc w Plan Readm Anticipated Discharge Date: Discharge Date: 02/21/2019 Expected LOS: 0 Initial Reviewer: [id number] Initial Review Date: 02/17/2019 Generated: 02/25/19 1:38 pm Comments DCP- Discharge Planning Updated by [email or web address]: Marietta Mckeon on 02/21/19 3:[address] Zoraida with [facility] called and stated that she has taught the patient and meds have been delivered she stated that she did that around 1400 DCP- Discharge Planning Updated by [email or web address]: Cortney Edgardo on 02/21/19 2:[address] Received primary care's order and sent to [facility] for BUN/CR to be drawn every couple of days. I also informed the patient. [facility] has already come and gone and taught patient on IV infusion. Patient states she feels comfortable with the IV. 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 Home today with home health and IV infusions. DCP- Discharge Planning Updated by [id number]: Cortney Reynoso on 02/21/19 8:[address] Cleary has discharged today. He is aware of lab results this am. States her nausea is gone. I have called Josh at [facility] and they will see her for her evening dose of antibiotic. I informed her that the levaquin is due tomorrow. I spoke with Dorian at [facility] and he will give me a time that they will be here today for the first instruction. I spoke with patient and she is agreeable to discharge plan. She is ambulating in the arndt at this time. CM will continue to follow and assist with discharge planning/needs. Home today with HH and infusion services. DCP- Discharge Planning Updated by [id number]: Cortney Reynoso on 02/19/19 2:[address] Received a call from Emerita with [facility] pharmacy that Medicaid will cover all of the infusion costs. CM to call when patient is discharged for them to mix the medication and do first infusion teaching. CM will continue to follow and assist with discharge planning/needs. DCP- Discharge Planning Updated by [id number]: Cortney Edgardo on 02/19/19 10:[address] I have faxed Dr. Cleary's antibiotic orders and clinical to [facility] and [facility]. I spoke with Dorian with [facility] and Sierra with [facility] and [facility] is accepting. CM will continue to follow and assist with discharge planning/needs. DCP- Discharge Planning Updated by [id number]: Cortney Reynoso on 02/18/19 9:[address] Met with patient to discuss discharge planning/needs, She will resume [facility] on discharge. She states either herself or her fianc? (works from midnight til 1400) will be able to deliver home antibiotics. I will need to know the antibiotic she is going home with along with the stop date to order from [facility]. CM will continue to follow and assist with discharge planning/needs. DCP- Discharge Planning Updated by [email or web address]: Gertrudis Whitehead on 02/17/19 11:[address] Patient Name: TITO MYLES Admission Status: Elective Accout number: [id number] Admission Date: 02-13-2019 : 1960 Admission Diagnosis:INFECT/INFLM REACTION DUE TO INTERNAL RIGHT HIP PROSTH, Attending: WILBER CLEARY Current LOS: 4 Anticipated DC Date: Planned Disposition: Primary Insurance: MEDICAID [place] Discharge Planning Comments: CM MET WITH PATIENT ABOUT DC PLANNING/NEEDS. STATES PLANS TO DC TO HOME AND [facility]. NOW HAS WOUND VAC, UNSURE IF SHE WILL HAVE IT AT TIME OF DC. CM WILL FOLLOW AND ASSIST. Menagerie Superintendent: Gertrudis Whitehead DCPIA - Discharge Planning Initial Assessment Updated by [email or web address]: Gertrudis Whitehead on 02/17/19 12:34 pm * Is the patient Alert and Oriented? Yes * PCP [facility] * [facility] * Preadmission Environment Home with Family * ADLs Independent * Equipment Cane Walker * Community resources currently utilized Home Health * Please name any agencies selected above. [facility] * Additional services required to return to the preadmission environment? No * Can the patient safely return to the preadmission environment? Yes * Has this patient been hospitalized within the prior 30 days at any hospital? No Coverage Notice Reviewer: [id number] Jordan Reynoso Notice Issued Date-Time: 02/18/2019 10:18 Notice Type: Patient Choice Letter Notice Delivered To: Patient Relationship to Patient: Self Heat Treat Puller Name: Delivery Method: HAND - Hand Delivered Kerry Days: Prior Verbal Notification: Recipient Understood Notice: Yes Recipient Signature: Yes Med Rec Note Co-signed by Attending: Coverage Notice Comment: [facility] for [facility] and [facility] Last DP export: 02/21/19 3:41 pm Patient Name: TITO MYLES Page [phone] at 1238 All edits/amendments must be made on the electronic document DICTATION DATE: 02/25/19 1238 DENTAL CERAMIST ASSISTANT: MICHELLE 02/25/19 1238 RPT#: [id number] DC DATE:02/21/19 STATUS: DIS IN [facility] [address] [place] [address] END OF REPORT
[2019-03-15 16:08] LABS: FUNGUS MYCOLOGY CULTURE Final report (())
== END 2019-02-21 16:34 | disposition home health service (06) | DRG 466 ==
LOC: D.MS 12:01
PROVIDERS: Family Medicine; Family Medicine Adult Medicine; Internal Medicine Nephrology; ADMIT Orthopaedic Surgery; ATTEND Orthopaedic Surgery
PROC: 0SPR0JZ Removal of Synthetic Substitute from Right Hip Joint, Femoral Surface, Open Approach (ICD-10-PCS; principal; 2019-02-13 14:00)
PROC: 0SRR0J9 Replacement of Right Hip Joint, Femoral Surface with Synthetic Substitute, Cemented, Open Approach (ICD-10-PCS; 2019-02-13 14:00)
PROC: 05HY33Z Insertion of Infusion Device into Upper Vein, Percutaneous Approach (ICD-10-PCS; 2019-02-15)
PROC: 0MDL0ZZ Extraction of Right Hip Bursa and Ligament, Open Approach (ICD-10-PCS; 2019-02-16)
DX: T84.51XA Infection and inflammatory reaction due to internal right hip prosthesis, initial encounter (principal); N17.0 Acute kidney failure with tubular necrosis; D62 Acute posthemorrhagic anemia; E83.42 Hypomagnesemia; I95.9 Hypotension, unspecified; F41.9 Anxiety disorder, unspecified; M19.90 Unspecified osteoarthritis, unspecified site; I10 Essential (primary) hypertension; R33.9 Retention of urine, unspecified

== ENCOUNTER → 2019-02-22 02:12 | Outpatient (CLI) | payer MEDICAID ==
[2019-02-18 11:03] VITALS: BMI 39.7
[~2019-02-22 02:12] MED LIST changes: +LEVOFLOXAC750 MG/150 IV; +MAXIPIME 1 GM/D51 G1 IV; +PHENERGAN25 M1 PO; +ZOFRAN ODT4 MG/UDTAB PO
== END | disposition home or self-care (01) ==
LOC: D.LABREF 02:12
PROVIDERS: ATTEND Family Medicine
DX: Z47.1 Aftercare following joint replacement surgery (principal)

== ENCOUNTER → 2019-02-23 13:56 | Outpatient (CLI) | payer MEDICAID ==
[2019-02-18 11:03] VITALS: BMI 39.7
[2019-02-23 14:09] LABS: CREATININE - SERUM 2.3 mg/dL (0.6-1.3)
[2019-02-23 15:30] LABS: CREATININE - SERUM 2.3 mg/dL (0.6-1.3)
== END | disposition home or self-care (01) ==
LOC: D.LABREF 13:56
PROVIDERS: ATTEND Family Medicine
DX: Z47.1 Aftercare following joint replacement surgery (principal)

== ENCOUNTER → 2019-02-25 16:24 | Outpatient (CLI) | payer MEDICAID ==
[2019-02-18 11:03] VITALS: BMI 39.7
[2019-02-25 16:33] LABS: BASOPHILS 0.3 % (0-2); EOSINOPHILS 5.4 % (0-7); HEMATOCRIT 23.6 % (36.0-48.0); HEMOGLOBIN 7.9 g/dL (12-16); IMMATURE GRANULOCYTES 0.5 % (0-5); LYMPHOCYTES 17.5 % (15-50); MCH 28.7 pg (26.0-34.0); MCHC 33.5 g/dL (31.0-37.0); MCV 85.8 fL (80.0-100.0); MEAN PLATELET VOLUME 9.7 fL (7.4-10.4); MONOCYTES 6.9 % (2-11); NEUTROPHILS 69.4 % (40-80); PLATELET COUNT 209 10x3/uL (130-400); RBC 2.75 10x6/uL (4.00-5.40); RDW 14.2 % (11.5-14.5); WBC 5.8 10x3/uL (4.8-10.8)
[2019-02-25 16:56] LABS: C-REACTIVE PROTEIN 0.7 mg/dL (0.0-0.9); CREATININE - SERUM 2.2 mg/dL (0.6-1.3)
[2019-02-25 17:55] LABS: ERYTHROCYTE SEDIMENTATION RATE 74 mm/hr (0-30)
== END | disposition home or self-care (01) ==
LOC: D.LABREF 16:24
PROVIDERS: ATTEND Family Medicine
DX: Z47.1 Aftercare following joint replacement surgery (principal); I25.10 Atherosclerotic heart disease of native coronary artery without angina pectoris; I10 Essential (primary) hypertension

== ENCOUNTER → 2019-02-27 15:36 | Outpatient (CLI) | payer MEDICAID ==
[2019-02-18 11:03] VITALS: BMI 39.7
[2019-02-27 16:26] LABS: CREATININE - SERUM 1.9 mg/dL (0.6-1.3)
== END | disposition home or self-care (01) ==
LOC: D.LABREF 15:36
PROVIDERS: ATTEND Family Medicine
DX: I25.10 Atherosclerotic heart disease of native coronary artery without angina pectoris (principal); I10 Essential (primary) hypertension; Z47.1 Aftercare following joint replacement surgery; Z79.2 Long term (current) use of antibiotics

== ENCOUNTER → 2019-03-04 16:44 | Outpatient (CLI) | payer MEDICAID ==
[2019-02-18 11:03] VITALS: BMI 39.7
[2019-03-04 17:06] LABS: BASOPHILS 0.5 % (0-2); EOSINOPHILS 5.4 % (0-7); HEMATOCRIT 28.6 % (36.0-48.0); HEMOGLOBIN 9.7 g/dL (12-16); IMMATURE GRANULOCYTES 0.2 % (0-5); LYMPHOCYTES 20.9 % (15-50); MCH 28.4 pg (26.0-34.0); MCHC 33.9 g/dL (31.0-37.0); MCV 83.6 fL (80.0-100.0); MEAN PLATELET VOLUME 10.2 fL (7.4-10.4); MONOCYTES 7.8 % (2-11); NEUTROPHILS 65.2 % (40-80); RBC 3.42 10x6/uL (4.00-5.40); RDW 14.4 % (11.5-14.5); WBC 5.8 10x3/uL (4.8-10.8)
[2019-03-04 17:07] LABS: PLATELET COUNT 148 10x3/uL (130-400)
[2019-03-04 17:21] LABS: CREATININE - SERUM 1.5 mg/dL (0.6-1.3)
[2019-03-04 18:07] LABS: ERYTHROCYTE SEDIMENTATION RATE 45 mm/hr (0-30)
== END | disposition home or self-care (01) ==
LOC: D.LABREF 16:44
PROVIDERS: ATTEND Family Medicine
DX: Z47.1 Aftercare following joint replacement surgery (principal); I25.10 Atherosclerotic heart disease of native coronary artery without angina pectoris; I10 Essential (primary) hypertension

== ENCOUNTER → 2019-03-11 20:34 | Outpatient (CLI) | payer MEDICAID ==
[2019-02-18 11:03] VITALS: BMI 39.7
[2019-03-11 21:00] LABS: BASOPHILS 0.2 % (0-2); EOSINOPHILS 7.5 % (0-7); HEMATOCRIT 27.6 % (36.0-48.0); HEMOGLOBIN 9.2 g/dL (12-16); IMMATURE GRANULOCYTES 0.2 % (0-5); LYMPHOCYTES 24.8 % (15-50); MCH 28.3 pg (26.0-34.0); MCHC 33.3 g/dL (31.0-37.0); MCV 84.9 fL (80.0-100.0); MEAN PLATELET VOLUME 11.4 fL (7.4-10.4); MONOCYTES 11.2 % (2-11); NEUTROPHILS 56.1 % (40-80); RBC 3.25 10x6/uL (4.00-5.40); RDW 14.3 % (11.5-14.5); WBC 4.3 10x3/uL (4.8-10.8)
[2019-03-11 21:07] LABS: PLATELET COUNT 109 10x3/uL (130-400)
[2019-03-11 21:09] LABS: CREATININE - SERUM 1.1 mg/dL (0.6-1.3)
[2019-03-11 22:18] LABS: ERYTHROCYTE SEDIMENTATION RATE 24 mm/hr (0-30)
== END | disposition home or self-care (01) ==
LOC: D.LABREF 20:34
PROVIDERS: ATTEND Family Medicine
DX: Z47.1 Aftercare following joint replacement surgery (principal); Z79.899 Other long term (current) drug therapy

== ENCOUNTER → 2019-03-18 16:15 | Outpatient (CLI) | payer MEDICAID ==
[2019-02-18 11:03] VITALS: BMI 39.7
[2019-03-18 16:26] LABS: HEMATOCRIT 29.8 % (36.0-48.0); HEMOGLOBIN 9.6 g/dL (12-16); MCHC 32.2 g/dL (31.0-37.0); MCV 86.9 fL (80.0-100.0); MEAN PLATELET VOLUME 10.5 fL (7.4-10.4); RBC 3.43 10x6/uL (4.00-5.40); WBC 5.2 10x3/uL (4.8-10.8)
[2019-03-18 16:29] LABS: PLATELET COUNT 144 10x3/uL (130-400)
[2019-03-18 17:21] LABS: EOSINOPHILS 6 % (0-7); LYMPHOCYTES 30 % (15-50); NEUTROPHILS 64 % (40-80); PLATELET ESTIMATE NORMAL
[2019-03-18 17:29] LABS: ERYTHROCYTE SEDIMENTATION RATE 35 mm/hr (0-30)
== END | disposition home or self-care (01) ==
LOC: D.LABREF 16:15
PROVIDERS: ATTEND Family Medicine
DX: Z47.1 Aftercare following joint replacement surgery (principal)

== ENCOUNTER → 2019-03-22 17:20 | Outpatient (CLI) | payer MEDICAID ==
[2019-02-18 11:03] VITALS: BMI 39.7
[2019-03-22 18:07] LABS: ANION GAP 14.9 mmol/L (8-16); CALCIUM 8.4 mg/dL (8.5-10.1); CARBON DIOXIDE 25.6 mmol/L (21.0-32.0); CREATININE - SERUM 1.2 mg/dL (0.6-1.3); PHOSPHOROUS 4.1 mg/dL (2.5-4.9); POTASSIUM - SERUM 4.5 mmol/L (3.5-5.1)
== END | disposition home or self-care (01) ==
LOC: D.LABREF 17:20
PROVIDERS: ATTEND Internal Medicine Nephrology
DX: N39.0 Urinary tract infection, site not specified (principal); I25.10 Atherosclerotic heart disease of native coronary artery without angina pectoris; B99.9 Unspecified infectious disease

== ENCOUNTER → 2019-03-25 12:58 | Outpatient (CLI) | payer MEDICAID ==
[2019-02-18 11:03] VITALS: BMI 39.7
[2019-03-25 14:35] LABS: BASOPHILS 0.5 % (0-2); EOSINOPHILS 8.4 % (0-7); HEMATOCRIT 29.7 % (36.0-48.0); HEMOGLOBIN 9.6 g/dL (12-16); IMMATURE GRANULOCYTES 0.2 % (0-5); LYMPHOCYTES 18.8 % (15-50); MCH 28.3 pg (26.0-34.0); MCHC 32.3 g/dL (31.0-37.0); MCV 87.6 fL (80.0-100.0); MEAN PLATELET VOLUME 10.5 fL (7.4-10.4); NEUTROPHILS 62.1 % (40-80); PLATELET COUNT 171 10x3/uL (130-400); RBC 3.39 10x6/uL (4.00-5.40); WBC 4.4 10x3/uL (4.8-10.8)
[2019-03-25 14:56] LABS: CREATININE - SERUM 1.2 mg/dL (0.6-1.3)
[2019-03-25 15:34] LABS: ERYTHROCYTE SEDIMENTATION RATE 43 mm/hr (0-30)
== END | disposition home or self-care (01) ==
LOC: D.LABREF 12:58
PROVIDERS: ATTEND Family Medicine
DX: Z47.1 Aftercare following joint replacement surgery (principal)

== ENCOUNTER → 2019-04-01 19:45 | Outpatient (CLI) | payer MEDICAID ==
[2019-02-18 11:03] VITALS: BMI 39.7
[2019-04-01 19:58] LABS: BASOPHILS 0.2 % (0-2); EOSINOPHILS 6.8 % (0-7); HEMATOCRIT 32.4 % (36.0-48.0); HEMOGLOBIN 10.3 g/dL (12-16); IMMATURE GRANULOCYTES 0.4 % (0-5); LYMPHOCYTES 21.7 % (15-50); MCH 28.1 pg (26.0-34.0); MCHC 31.8 g/dL (31.0-37.0); MCV 88.3 fL (80.0-100.0); MEAN PLATELET VOLUME 11.2 fL (7.4-10.4); MONOCYTES 6.3 % (2-11); NEUTROPHILS 64.6 % (40-80); PLATELET COUNT 186 10x3/uL (130-400); RBC 3.67 10x6/uL (4.00-5.40); RDW 13.8 % (11.5-14.5); WBC 5.6 10x3/uL (4.8-10.8)
[2019-04-01 21:18] LABS: ERYTHROCYTE SEDIMENTATION RATE 52 mm/hr (0-30)
== END | disposition home or self-care (01) ==
LOC: D.LABREF 19:45
PROVIDERS: ATTEND Family Medicine
DX: Z47.1 Aftercare following joint replacement surgery (principal); I10 Essential (primary) hypertension; Z79.2 Long term (current) use of antibiotics

== ENCOUNTER → 2019-05-20 11:16 | Outpatient (CLI) | payer MEDICAID ==
[2019-02-18 11:03] VITALS: BMI 39.7
[2019-05-20 11:36] LABS: BASOPHILS 0.1 % (0-2); EOSINOPHILS 5.2 % (0-7); HEMATOCRIT 37.5 % (36.0-48.0); HEMOGLOBIN 12.2 g/dL (12-16); IMMATURE GRANULOCYTES 0.1 % (0-5); LYMPHOCYTES 23.9 % (15-50); MCH 28.2 pg (26.0-34.0); MCHC 32.5 g/dL (31.0-37.0); MCV 86.8 fL (80.0-100.0); MEAN PLATELET VOLUME 9.9 fL (7.4-10.4); MONOCYTES 7.6 % (2-11); NEUTROPHILS 63.1 % (40-80); RBC 4.32 10x6/uL (4.00-5.40); RDW 14.3 % (11.5-14.5); WBC 6.7 10x3/uL (4.8-10.8)
[2019-05-20 11:38] LABS: PLATELET COUNT 236 10x3/uL (130-400)
[2019-05-20 11:40] LABS: CALC OSMOLALITY 285 mosm/kg (275-300); CALCIUM 9.3 mg/dL (8.5-10.1); CARBON DIOXIDE 25.4 mmol/L (21.0-32.0); CHLORIDE - SERUM 107 mmol/L (98-107); CREATININE - SERUM 1.3 mg/dL (0.6-1.3); GLUCOSE 92 mg/dL (74-106); POTASSIUM - SERUM 4.7 mmol/L (3.5-5.1); SODIUM 140 mmol/L (136-145); UREA NITROGEN 32 mg/dL (7-18); eGFR NON AFRICAN AMERICAN 44 mL/min (90-120)
[2019-05-20 11:46] LABS: ALBUMIN 3.8 g/dL (3.4-5.0); ALKALINE PHOSPHATASE 142 U/L (46-116); ALT (SGPT) 25 U/L (10-68); BILIRUBIN - TOTAL 0.28 mg/dL (0.2-1.3); PROTEIN - SERUM 7.2 g/dL (6.4-8.2)
[2019-05-20 11:48] LABS: C-REACTIVE PROTEIN < 0.2 mg/dL (0.0-0.9)
[2019-05-20 12:50] LABS: ERYTHROCYTE SEDIMENTATION RATE 75 mm/hr (0-30)
== END | disposition home or self-care (01) ==
LOC: D.LABREF 11:16
PROVIDERS: ATTEND Orthopaedic Surgery
DX: M25.551 Pain in right hip (principal)

== ENCOUNTER → 2019-07-02 12:14 | Outpatient (CLI) | payer MEDICAID ==
[2019-02-18 11:03] VITALS: BMI 39.7
== END | disposition home or self-care (01) ==
LOC: D.RAD 12:14
PROVIDERS: ATTEND Nurse Practitioner Family
DX: M25.531 Pain in right wrist (principal); M25.551 Pain in right hip

== ENCOUNTER → 2019-08-15 12:11 | Outpatient (CLI) | payer MEDICAID ==
[2019-02-18 11:03] VITALS: BMI 39.7
[2019-08-15 12:55] LABS: BASOPHILS 0.2 % (0-2); EOSINOPHILS 2.4 % (0-7); HEMATOCRIT 34.8 % (36.0-48.0); HEMOGLOBIN 11.6 g/dL (12-16); IMMATURE GRANULOCYTES 0.1 % (0-5); LYMPHOCYTES 15.9 % (15-50); MCH 28.7 pg (26.0-34.0); MCHC 33.3 g/dL (31.0-37.0); MCV 86.1 fL (80.0-100.0); MEAN PLATELET VOLUME 9.3 fL (7.4-10.4); MONOCYTES 6.1 % (2-11); NEUTROPHILS 75.3 % (40-80); RBC 4.04 10x6/uL (4.00-5.40); RDW 12.8 % (11.5-14.5); WBC 8.7 10x3/uL (4.8-10.8)
[2019-08-15 13:10] LABS: PLATELET COUNT 345 10x3/uL (130-400)
[2019-08-15 14:08] LABS: ERYTHROCYTE SEDIMENTATION RATE 93 mm/hr (0-30)
== END | disposition home or self-care (01) ==
LOC: D.LAB 12:11
PROVIDERS: ATTEND Orthopaedic Surgery
DX: M25.551 Pain in right hip (principal)

== ENCOUNTER → 2019-08-16 10:00 | Outpatient (CLI) | payer MEDICAID ==
[2019-02-18 11:03] VITALS: BMI 39.7
== END | disposition home or self-care (01) ==
LOC: D.MAMMO 10:00
PROVIDERS: ATTEND Nurse Practitioner Family
DX: Z12.31 Encounter for screening mammogram for malignant neoplasm of breast (principal)

== ENCOUNTER → 2019-08-21 09:38 | Outpatient (CLI) | payer MEDICAID ==
[2019-02-18 11:03] VITALS: BMI 39.7
--- NOTE | ~2019-08-21 | HEMODYNAMI ---
PATIENT:TITO MYLES MEDICAL RECORD: [id number] : 58 LOCATION:[facility] ADMISSION DATE: 08/21/19 Generatedon:08/21/201911:18 Patient name: TITO MYLES Patient #: [id number] SSN: : 1960 Date of study: 08/21/2019 Page: Of Hemodynamic Procedure Report Patient Data Patient Demographics Procedure consent was obtained First Name: TITO Gender: Female Last Name: SHAR : 1960 [facility] Initial: MARLIN Age: 59 year(s) Patient #: [id number] Race: Unknown Additional ID: [id number] Contact details Address: [place] [address] State: [place] City: [place] Zip code: [address] Past Medical History Allergies Allergen Reaction Date Comments Reported Other allergy 08/21/2019 bijan nuñez Admission Admission Data Admission Date: 08/21/2019 Admission Time: 9:38 Procedure Procedure Types Cath Procedure Peripheral Cath Diagnostic Procedure Miscellaneous Aspiration/Injection (Joint) Procedure Description Procedure Date Procedure Date: 08/21/2019 Procedure Start Time: 11:04 Procedure Staff Name Function Joao Rosario MD Performing Physician Arpan Chau RT Monitor Gilma Mcclendon RT Scrub Procedure Data Cath Procedure Fluoroscopy Diagnostic fluoroscopy Total fluoroscopy Time: 0.8 time: 0.8 min min Diagnostic fluoroscopy Total fluoroscopy dose: 7 dose: 7 mGy mGy Hemodynamics Rest Pre Cath Intra NCS Post Cath Procedure Log Time Note 10:57:21 Arpan Chau RT (R) (CV) sent for patient. Start room use. 10:57:31 Time tracking: Regular hours (M-F 7:00 - 5:00) 10:57:36 Plan of Care:Hemodynamics will remain stable., Cardiac rhythm will remain stable., Comfort level will be maintained., Respiratory function will remain adequate., Patient/ family verbilizes understanding of procedure., Procedure tolerated without complication., Recovers from procedure without complications.. 10:57:41 Patient received from Other to IR Alert and oriented. Tansferred to table in Supine position. 10:57:45 Signed procedure consent form obtained from patient. 10:57:46 Full Disclosure recording started 10:57:47 - 10:57:48 Pre-procedure instructions explained to patient. 10:57:48 Pre-op teaching completed and patient verbalized understanding. 10:57:50 Zero performed for pressure channel P1 10:58:05 Patient allergic to Other allergypcn,codiene 10:58:15 Is patient on blood thinner?No 10:58:20 Sharps counted by scrub and verified by R.N. 10:58:20 Alarms reviewed by R. N. 10:58:24 Right groin area was prepped with betadine and draped in sterile fashio n 11:01:54 SAFE-T PLUS MYELOGRAM TRAY opened to sterile field. 11:03:30 Physician arrived 11:03:32 --------ALL STOP TIME OUT------ 11:03:36 Final Timeout: patient, procedure, and site verified with staff and physician. All members of the team are in agreement. 11:03:39 Right groin site verified by team. 11:04:02 Sedation plan: Local Anesthetic Medication:Lidocaine 11:04:13 Procedure started. 11:04:18 Local anesthetic to right groinwith Lidocaine 1% by Jooa Rosario MD.INITIAL ACCESS ONLY 11:16:31 Procedure ended.(Physican Out) 11:16:45 Fluoroscopy time 00.80 minutes. 11:16:50 Fluoroscopy dose: 7 mGy 11:16:50 Flurop Dose total: 7 11:18:01 Patient transfered to Other with Ambulatory. Device Usage Item Name Manufacture Quantity Catalog Hospital Part Current Minimal Lot# / Number Charge Number Stock Stock Serial# Code SAFE-T [employer] 1 [id number] PLUS MYELOGRAM TRAY Signature Audit [place] Stage Time Signature Unsigned Intra-Procedure 08/21/2019 Gilma Mcclendon 11:18:22 AM RT(R) [facility] [address] [place] [address]
== END | disposition home or self-care (01) ==
LOC: D.RAD 09:38
PROVIDERS: ATTEND Orthopaedic Surgery
DX: M25.551 Pain in right hip (principal); M54.16 Radiculopathy, lumbar region

== ENCOUNTER 2019-09-17 08:00 | Outpatient (CLI) | payer MEDICAID ==
[2019-02-18 11:03] VITALS: BMI 39.7
== END 2019-09-17 09:00 | disposition home or self-care (01) ==
LOC: D.MAMMO 08:00
PROVIDERS: ATTEND Nurse Practitioner Family
DX: R92.8 Other abnormal and inconclusive findings on diagnostic imaging of breast (principal)

== ENCOUNTER 2020-01-24 07:05 | Day surgery (SDC) | payer MEDICAID ==
[2020-01-22 09:42] LABS: HEMOGLOBIN 13.7 g/dL (12-16); MCH 29.2 pg (26.0-34.0); MCHC 33.4 g/dL (31.0-37.0); MCV 87.4 fL (80.0-100.0); MEAN PLATELET VOLUME 9.4 fL (7.4-10.4); RBC 4.69 10x6/uL (4.00-5.40); RDW 13.7 % (11.5-14.5); WBC 6.7 10x3/uL (4.8-10.8)
[~2020-01-24] VITALS: Ht 149.9 cm; Wt 90.7 kg
[~2020-01-24 07:05] MED LIST changes: +CRESTOR20 MG PO; +NORVASC5 MG PO
[2020-01-24] MEDS ORDERED: TUMERIC (07:51)
[2020-01-24] MEDS ORDERED: VOLTAREN100 GM TOPICAL (07:51)
[2020-01-24] MEDS ORDERED: [UNRECOGNIZED DRUG - OTHER] (07:52)
[2020-01-24] MEDS ORDERED: CALCIUM 600 +1 EAC3 PO (07:52)
[2020-01-24 08:00] VITALS: BP 130/71; Ht 149.9 cm; Wt 90.7 kg
--- NOTE | 2020-01-24 09:09 | NUR ---
0900-block per anesthesia. o2 on at 2l per nc. monitors established and alarms audible. o2 sat 98%. drowsy but talkative.
[2020-01-24] MEDS ORDERED: VISTARIL50 MG PO (10:37)
[2020-01-24] MEDS ORDERED: ZOFRAN ODT4 MG/UDTAB PO (10:37)
--- NOTE | 2020-01-24 11:14 | NUR ---
SCOPE PATCH BEHIND LEFT EAR ON ADMIT
--- NOTE | 2020-01-27 08:18 | OP ---
PATIENT NAME: TITO MYLES MEDICAL RECORD: [id number] :58 LOCATION:[facility] ADMISSION DATE: SURGEON: JOAO CLEARY DO DATE OF OPERATION: 01/24/2020 PROCEDURE PERFORMED: Right thumb CMC arthroplasty. PREOPERATIVE DIAGNOSIS: Right thumb CMC joint arthritis, end-stage. POSTOPERATIVE DIAGNOSIS: Right thumb CMC joint arthritis, end-stage. INDICATIONS: Ms. Car is a 59-year-old female who has had this right thumb CMC pain for quite some time. She has tried injections and bracing to no avail and she wants something done surgical. 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 I informed her of the risks including infection, bleeding, damage to nerves and vessels, need for further surgery, continued pain, failure of implants, loss of pinch sales planning analyst with the thumb damage to the superficial radial nerve in the area and need for revision. She signed the consent. SURGEON: Joao Cleary DO DESCRIPTION OF PROCEDURE: The patient was taken to the operative suite, laid in supine position, given general anesthetic and LMA was placed. She was given 2 grams of Ancef preoperatively. The right upper extremity was then prepped and draped in sterile fashion. A timeout was performed. Everyone was agreed with correct side, site, patient, and procedure. We then began by exsanguinating the right upper extremity with an Esmarch, tourniquet was inflated to 250 mmHg, was up for 34 minutes. Then made an incision on the radial border of the thumb and made careful dissection down to the CMC joint, peeled off the capsule and made a spot for the button to go for the implant. I then made an incision over the second metacarpal and dissected down to the second metacarpal, put the pin into the base of the thumb through the second metacarpal and then ran the FiberWire through that with the button on the side and ran it from the second metacarpal to the first metacarpal and tied a button down holding it into place. I then removed the trapezium. Once it was all removed, I then tensioned the button and the suture appropriately under x-ray and tied it down on the thumb side. Once that was in appropriate position and did not have much subluxation with pressure, I then closed the capsule with 2-0 Vicryl in a [id number] and simple fashion. The tourniquet was then let down and bleeding was coagulated with the bipolar and Escobar Wilson, certified ophthalmic technologist closed the skin first with a 3-0 Vicryl in inverted interrupted fashion and then 5-0 Monocryl running on the skin on the thumb side and then a 5-0 Monocryl in a horizontal mattress fashion over the second metacarpal. We then dressed with Adaptic, 4 x 4s, ABD, cast padding and put a thumb spica splint on the patient and secured with an Srikanth wrap. The patient was then awakened and taken to recovery in stable condition. BLOOD LOSS: Minimal. COMPLICATIONS: None. The tourniquet was let down at 34 minutes. TRANSINT:[id number] Voice Confirmation ID: [id number] DOCUMENT ID: [id number] OPERATIVE REPORT [id number] TITO MYLES MICHAEL D, DO at 0818 CC: [id number] DICTATION DATE: 01/24/20 1324 [employer] SUPERVISOR: 01/25/20 0147 [facility] 01/24/20 [id number] [place] [address]
== END 2020-01-24 12:50 | disposition home or self-care (01) ==
LOC: D.OPS 07:05 → D.PAN 09:15 → D.OPS 09:45
PROVIDERS: Anesthesiology; ATTEND Orthopaedic Surgery
DX: M18.11 Unilateral primary osteoarthritis of first carpometacarpal joint, right hand (principal); J45.909 Unspecified asthma, uncomplicated; K21.9 Gastro-esophageal reflux disease without esophagitis; I10 Essential (primary) hypertension

== ENCOUNTER → 2020-11-13 20:16 | Outpatient (CLI) | payer MEDICARE, MEDICAID ==
[2020-01-24 08:00] VITALS: BMI 40.5
[~2020-11-13 20:16] MED LIST changes: +CALCIUM 600 +1 EAC3 PO; +TUMERIC; +VOLTAREN100 GM TOPICAL; +[UNRECOGNIZED DRUG - OTHER]
== END | disposition home or self-care (01) ==
LOC: D.MAMMO 09:30
PROVIDERS: ATTEND Family Medicine
DX: Z12.31 Encounter for screening mammogram for malignant neoplasm of breast (principal)